=== PATIENT | female | born 1980 | race Caucasian/White ===

== ENCOUNTER 2017-04-02 20:42 | Emergency (ER) | payer OTHER ==
[2017-04-02 20:58] VITALS: BP 148/84
--- NOTE | 2017-04-02 21:15 | EDM.PDOC ---
ED HPI GENERAL MEDICAL PROBLEM - General Chief Complaint: Headache Stated Complaint: DIZZY/MIGRAINE Time Seen by Provider: 04/02/17 21:13 Source of Information: Reports: Patient, RN Notes Reviewed - History of Present Illness INITIAL COMMENTS - FREE TEXT/NARRATIVE: 36-year-old female comes in with headache that started several hours ago. She states she did have mild headache this past morning but then did fairly well throughout the day. States she did have an argument with her "16-year-old son this evening and headache then he came much worse after that. Headache is frontal, pounding there has been some nausea no vomiting. No other unusual symptomatology. Left Headache Pain Score (Numeric/FACES): 8 - Related Data Allergies Allergy/AdvReac Type Severity Reaction Status Date / Time adalimumab [From Humira] Allergy Other Verified 09/20/14 21:14 infliximab [From Remicade] Allergy Other Verified 09/20/14 21:14 prochlorperazine edisylate Allergy Other Verified 09/20/14 21:14 [From Compazine] prochlorperazine maleate Allergy Other Verified 09/20/14 21:14 [From Compazine] bandaids Allergy Rash Uncoded 05/14/14 21:43 Home Meds: Home Meds Desmopressin Acetate 2 spray NS DAILY 05/14/14 [History] Gabapentin [Neurontin] 100 mg PO DAILY 04/02/17 [History] Indomethacin 50 mg PO DAILY PRN 04/02/17 [History] Past Medical History Other HEENT History: 4 eye surgerys Cardiovascular History: Reports: None Respiratory History: Reports: None Gastrointestinal History: Reports: None Genitourinary History: Reports: None 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 Other Musculoskeletal History: arm surgery Neurological History: Reports: Migraines Psychiatric History: Reports: None Hematologic History: Reports: None - Infectious Disease History Infectious Disease History: Reports: None - Past Surgical History Other HEENT Surgeries/Procedures: matt reconstruction 2 years ago GI Surgical History: Reports: Cholecystectomy Female Surgical History: Reports: Hysterectomy Social & Family History - Family History Family Medical History: Noncontributory - Tobacco Use Smoking Status *Q: Current Every Day Smoker Years of Tobacco use: 18 Packs/Tins Daily: 1 - Caffeine Use Caffeine Use: Reports: Coffee, Soda - Alcohol Use Days Per Week of Alcohol Use: 0 - Recreational Drug Use Recreational Drug Use: No ED ROS GENERAL - Review of Systems Review Of Systems: See Below Constitutional: Denies: Fever, Chills, Diaphoresis HEENT: Reports: No Symptoms. Denies: Throat Pain Respiratory: Reports: No Symptoms Cardiovascular: Denies: Chest Pain GI/Abdominal: Denies: Abdominal Pain, Nausea, Vomiting : Reports: No Symptoms Musculoskeletal: Denies: Shoulder Pain, Arm Pain Skin: Reports: No Symptoms Neurological: Reports: Headache. Denies: Numbness, Tingling - Physical Exam Exam: See Below General Appearance: Alert, No Apparent Distress Throat/Mouth: Normal Inspection Head Exam: Atraumatic. No: Facial Swelling Neck: Supple, Full Range of Motion Respiratory/Chest: No Respiratory Distress, Lungs Clear, Normal Breath Sounds Cardiovascular: Regular Rate, Rhythm Neuro Exam (Abbreviated): Alert, Oriented, No Motor/Sensory Deficits Back Exam: No: CVA Tenderness (L), CVA Tenderness (R) Extremities: Normal Inspection. No: Leg Pain Skin Exam: Warm, Dry, Normal Color Course - Vital Signs Last Recorded V/S: Last Vital Signs Temp 98.3 F 04/02/17 20:53 Pulse 83 04/02/17 20:53 Resp 16 04/02/17 20:53 BP 148/84 H 04/02/17 20:53 Pulse Ox 97 04/02/17 20:53 - Orders/Labs/Meds Orders: Active Orders 24 hr Category Date Time Status Peripheral IV Care [RC] . DIRECTED Care 04/02/17 21:29 Active Ketorolac [Toradol] Med 04/02/17 21:30 Active 30 mg IVPUSH ONETIME Sodium Chloride 0.9% [Normal Saline] 1,000 ml Med 04/02/17 21:30 Active IV ONETIME Sodium Chloride 0.9% [Saline Flush] Med 04/02/17 21:26 Active 10 ml FLUSH ASDIRECTED PRN Peripheral IV Insertion Adult [OM.PC] Stat Oth 04/02/17 21:29 Ordered Medication Orders Sodium Chloride (Normal Saline) 1,000 mls @ 999 mls/hr IV ONETIME NATALIO Last Admin: 04/02/17 21:36 Dose: 999 mls/hr Ketorolac Tromethamine (Toradol) 30 mg IVPUSH ONETIME NATALIO Last Admin: 04/02/17 21:40 Dose: 30 mg Sodium Chloride (Saline Flush) 10 ml FLUSH ASDIRECTED PRN PRN Reason: Keep Vein Open Last Admin: 04/02/17 21:42 Dose: 10 ml Meds: Medications Generic Name Dose Route Start Last Admin Trade Name Freq PRN Reason Stop Dose Admin Sodium Chloride 1,000 mls @ 999 mls/hr 04/02/17 21:30 04/02/17 21:36 Normal Saline IV 999 mls/hr ONETIME NATALIO Administration Ketorolac Tromethamine 30 mg 04/02/17 21:30 04/02/17 21:40 Toradol IVPUSH 30 mg ONETIME NATALIO Administration Sodium Chloride 10 ml 04/02/17 21:26 04/02/17 21:42 Saline Flush FLUSH 10 ml ASDIRECTED PRN Administration Keep Vein Open Discontinued Medications Generic Name Dose Route Start Last Admin Trade Name Freq PRN Reason Stop Dose Admin Diphenhydramine HCl 50 mg 04/02/17 21:30 04/02/17 21:39 Benadryl IVPUSH 04/02/17 21:31 50 mg ONETIME ONE Administration Haloperidol Lactate 5 mg 04/02/17 22:22 04/02/17 22:30 Haldol IVPUSH 04/02/17 22:23 5 mg ONETIME ONE Administration Metoclopramide HCl 5 mg 04/02/17 21:30 04/02/17 21:37 Reglan IVPUSH 04/02/17 21:31 5 mg ONETIME ONE Administration Departure - Departure Time of Disposition: 22:41 Disposition: Home, Self-Care 01 Condition: Fair Clinical Impression: Migraine - Discharge Information Referrals: Stevie Hernadez MD [Primary Care Provider] - Forms: ED Department Discharge Additional Instructions: Rest, continue current medications, Follow up at clinic Wednesday if headache has not completely resolved by than, return to ED as needed - My Orders Last 24 Hours: My Active Orders 04/02/17 21:26 Sodium Chloride 0.9% [Saline Flush] 10 ml FLUSH ASDIRECTED PRN 04/02/17 21:29 Peripheral IV Care [RC] . DIRECTED Peripheral IV Insertion Adult [OM.PC] Stat 04/02/17 21:30 Ketorolac [Toradol] 30 mg IVPUSH ONETIME Sodium Chloride 0.9% [Normal Saline] 1,000 ml IV ONETIME - Assessment/Plan Last 24 Hours: My Active Orders 04/02/17 21:26 Sodium Chloride 0.9% [Saline Flush] 10 ml FLUSH ASDIRECTED PRN 04/02/17 21:29 Peripheral IV Care [RC] . DIRECTED Peripheral IV Insertion Adult [OM.PC] Stat 04/02/17 21:30 Ketorolac [Toradol] 30 mg IVPUSH ONETIME Sodium Chloride 0.9% [Normal Saline] 1,000 ml IV ONETIME
[2017-04-02] MEDS ORDERED: Sodium Chloride 0.9% 10 ML Syringe FLUSH PRN (21:26)
[2017-04-02] MEDS ORDERED: Ketorolac 30 MG/ML SDV IVPUSH SCH (21:30)
[2017-04-02] MEDS ORDERED: diphenhydrAMINE 50 MG/ML SDV IVPUSH ONE (21:30)
[2017-04-02] MEDS ORDERED: Sodium Chloride 0.9% 1,000 ML IV SCH (21:30)
[2017-04-02] MEDS ORDERED: Metoclopramide 10 MG/2 ML SDV IVPUSH ONE (21:30)
[2017-04-02] MEDS ORDERED: Haloperidol Lactate 5 MG/ML SDV IVPUSH ONE (22:22)
== END 2017-04-02 22:45 | disposition home or self-care (01) ==
LOC: JD.ED 20:42
DX: G43.909 Migraine, unspecified, not intractable, without status migrainosus (principal); F17.210 Nicotine dependence, cigarettes, uncomplicated; Z88.8 Allergy status to other drugs, medicaments and biological substances; Z79.899 Other long term (current) drug therapy; Z90.49 Acquired absence of other specified parts of digestive tract; Z90.710 Acquired absence of both cervix and uterus
CPT/HCPCS: 96361; 96374; 96375; 99284; J1200; J1630; J1885; J2765; J7040; J7050

== ENCOUNTER 2017-04-03 18:41 | Emergency (ER) | payer OTHER ==
[2017-04-03 18:51] VITALS: BP 150/91
--- NOTE | 2017-04-03 19:14 | EDM.PDOC ---
ED HPI GENERAL MEDICAL PROBLEM - General Chief Complaint: Allergic Reaction Stated Complaint: Allergic reaction Time Seen by Provider: 04/03/17 19:00 Source of Information: Reports: Patient, RN Notes Reviewed History Limitations: Reports: No Limitations - History of Present Illness INITIAL COMMENTS - FREE TEXT/NARRATIVE: 36 year old female presents to the ED with complaints of allergic reaction to Haldol injection she received last evening for migraine headache. She said almost immediately after the injection she started to feel restless. This feeling has progressively worsened since that time. She feels itchy all over and has a dry cough. She denies throat swelling, facial swelling, difficulty swallowing, wheezing, shortness of breath, or stridor. She also reports cramping in her lower extremities. She has several medication allergies. Her headache resolved after her visit last evening. 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: benadryl 50 mg at 0800 - Related Data Allergies Allergy/AdvReac Type Severity Reaction Status Date / Time adalimumab [From Humira] Allergy Other Verified 04/03/17 18:47 infliximab [From Remicade] Allergy Other Verified 04/03/17 18:47 prochlorperazine edisylate Allergy Other Verified 04/03/17 18:47 [From Compazine] prochlorperazine maleate Allergy Other Verified 04/03/17 18:47 [From Compazine] bandaids Allergy Rash Uncoded 04/03/17 18:47 Home Meds: Home Meds Desmopressin Acetate 2 spray NS DAILY 05/14/14 [History] Gabapentin [Neurontin] 100 mg PO DAILY 04/02/17 [History] Indomethacin 50 mg PO DAILY PRN 04/02/17 [History] Past Medical History Other HEENT History: 4 eye surgerys Cardiovascular History: Reports: None Respiratory History: Reports: None Gastrointestinal History: Reports: None Genitourinary History: Reports: None 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 Other Musculoskeletal History: arm surgery Neurological History: Reports: Migraines Psychiatric History: Reports: None Hematologic History: Reports: None - Infectious Disease History Infectious Disease History: Reports: None - Past Surgical History Other HEENT Surgeries/Procedures: matt reconstruction 2 years ago GI Surgical History: Reports: Cholecystectomy Female Surgical History: Reports: Hysterectomy Social & Family History - Family History Family Medical History: Noncontributory - Tobacco Use Smoking Status *Q: Current Every Day Smoker Years of Tobacco use: 18 Packs/Tins Daily: 1 - Caffeine Use Caffeine Use: Reports: Coffee, Soda - Alcohol Use Days Per Week of Alcohol Use: 0 - Recreational Drug Use Recreational Drug Use: No ED ROS ALLERGIC REACTION - Review of Systems Review Of Systems: See Below Constitutional: Denies: Fever HEENT: Reports: No Symptoms. Denies: Throat Swelling Respiratory: Reports: Cough. Denies: Shortness of Breath, Wheezing Cardiovascular: Reports: No Symptoms. Denies: Chest Pain Skin: Reports: Pruritis. Denies: Rash Neurological: Reports: No Symptoms. Denies: Confusion, Dizziness, Headache, Numbness, Tingling, Weakness ED EXAM GENERAL NO PERIP PULSE - Physical Exam Exam: See Below Exam Limited By: No Limitations General Appearance: Alert, WD/WN, No Apparent Distress Throat/Mouth: Normal Inspection, Normal Lips, Normal Oropharynx, Normal Voice, No Airway Compromise. No: Inflammation, Perioral Cyanosis Head: Atraumatic, Normocephalic Neck: Normal Inspection, Supple, Non-Tender Respiratory/Chest: No Respiratory Distress, Lungs Clear, Normal Breath Sounds, No Accessory Muscle Use, Chest Non-Tender. No: Rhonchi, Wheezing, Stridor, Retractions Cardiovascular: Regular Rate, Rhythm, No Murmur Neurological: Alert, Oriented, Normal Cognition Course - Vital Signs Last Recorded V/S: Last Vital Signs Temp 97.9 F 04/03/17 18:47 Pulse 92 04/03/17 18:47 Resp 17 04/03/17 18:47 BP 150/91 H 04/03/17 18:47 Pulse Ox 97 04/03/17 18:47 - Re-Assessments/Exams Free Text/Narrative Re-Assessment/Exam: No signs of anaphylaxis at this time. Recommended treatment with Benadryl and pepcid. Do not recommend prednisone due to the stimulating side effects. Offered to start initial treatment here but patient would prefer to take the Benadry at home and go to bed. Patient educated on return precautions. Discharge instructions as documented. Will add Haldol to her allergy list. Departure - Departure Time of Disposition: 19:12 Disposition: Home, Self-Care 01 Condition: Good Clinical Impression: Allergic reaction caused by a drug Qualifiers: Encounter type: initial encounter Qualified Code(s): T78.40XA - Allergy, unspecified, initial encounter - Discharge Information Instructions: Drug Allergy, [id number] Referrals: Stevie Hernadez MD [Primary Care Provider] - Forms: ED Department Discharge Additional Instructions: Benadryl 50mg every 6 hours for first 24 hours May change to Zyrtec once a day once symptoms have improved Take pepcid 20mg twice a day for 5 days Return to ER with any new or worsening symptoms. Tylenol as needed for pain
== END 2017-04-03 19:20 | disposition home or self-care (01) ==
LOC: JD.ED 18:41
DX: L29.9 Pruritus, unspecified (principal); T43.4X5A Adverse effect of butyrophenone and thiothixene neuroleptics, initial encounter; F17.210 Nicotine dependence, cigarettes, uncomplicated; Z88.8 Allergy status to other drugs, medicaments and biological substances; Z79.899 Other long term (current) drug therapy
CPT/HCPCS: 99282; 99283

== ENCOUNTER 2017-12-17 10:12 | Emergency (ER) | payer OTHER ==
[2017-12-17 10:19] VITALS: BP 137/88
--- NOTE | 2017-12-17 11:08 | EDM.PDOC ---
ED HPI GENERAL MEDICAL PROBLEM - General Chief Complaint: Laceration Stated Complaint: RT ARM LAC Time Seen by Provider: 12/17/17 11:07 Source of Information: Reports: Patient History Limitations: Reports: No Limitations - History of Present Illness INITIAL COMMENTS - FREE TEXT/NARRATIVE: Patient is a 37 y/o female who presents to the E.D. complaining of a 2.2 cm laceration to the right forearm. Patient sustained the laceration this a.m. after cutting it on a crock pot that had broken and was being thrown away. States she was initially concerned because the bleeding would not stop thus prompted evaluation in ED. Upon of admission to the ED she has minimal discomfort. Bleeding is controlled. Tetanus status up-to-date. No other complaints at this time. - Related Data Allergies Allergy/AdvReac Type Severity Reaction Status Date / Time adalimumab [From Humira] Allergy Other Verified 12/17/17 10:19 haloperidol [From Haldol] Allergy Itching Verified 12/17/17 10:19 infliximab [From Remicade] Allergy Other Verified 12/17/17 10:19 prochlorperazine edisylate Allergy Other Verified 12/17/17 10:19 [From Compazine] prochlorperazine maleate Allergy Other Verified 12/17/17 10:19 [From Compazine] bandaids Allergy Rash Uncoded 12/17/17 10:19 Home Meds: Home Meds Desmopressin Acetate 2 spray NS DAILY 05/14/14 [History] Gabapentin [Neurontin] 100 mg PO DAILY 04/02/17 [History] Indomethacin 50 mg PO DAILY PRN 04/02/17 [History] Liraglutide [Victoza] 1.8 ml INJECT DAILY 12/17/17 [History] metFORMIN [Glucophage XR] 500 mg PO DAILY 12/17/17 [History] Past Medical History Other HEENT History: 4 eye surgerys Cardiovascular History: Reports: None Respiratory History: Reports: None Gastrointestinal History: Reports: None Genitourinary History: Reports: None 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 Other Musculoskeletal History: arm surgery Neurological History: Reports: Migraines Psychiatric History: Reports: None Hematologic History: Reports: None - Infectious Disease History Infectious Disease History: Reports: None - Past Surgical History Other HEENT Surgeries/Procedures: matt reconstruction 2 years ago GI Surgical History: Reports: Cholecystectomy Female Surgical History: Reports: Hysterectomy Social & Family History - Family History Family Medical History: Noncontributory - Tobacco Use Smoking Status *Q: Current Every Day Smoker Years of Tobacco use: 15 Packs/Tins Daily: 1 - Caffeine Use Caffeine Use: Reports: Coffee - Alcohol Use Days Per Week of Alcohol Use: 0 - Recreational Drug Use Recreational Drug Use: No ED ROS GENERAL - Review of Systems Review Of Systems: ROS reveals no pertinent complaints other than HPI. ED EXAM, SKIN/RASH Exam: See Below Exam Limited By: No Limitations General Appearance: Alert, WD/WN, No Apparent Distress Ears: Hearing Grossly Normal Nose: Normal Inspection Throat/Mouth: Normal Voice, No Airway Compromise Neck: Normal Inspection, Supple Respiratory/Chest: No Respiratory Distress, No Accessory Muscle Use Cardiovascular: Normal Peripheral Pulses, Regular Rate, Rhythm Peripheral Pulses: 4+: Radial (R) Extremities: Other (2.2 cm laceration to the right forearm with bleeding control. No signs of infection. No foreign debris noted.) Neurological: Alert, Oriented, CN II-XII Intact, Normal Cognition, No Motor/ Sensory Deficits Psychiatric: Normal Affect, Normal Mood Skin: Warm, Dry ED SKIN PROCEDURES - Laceration/Wound Repair Right Arm Lac/Wound length In cm: 2.2 Appearance: Superficial, Clean Distal NVT: Neuro & Vascular Intact Exploration/Debridement/Repair: Wound Explored, In a Bloodless Field, Explored to Base, No Foreign Material Found Closed with: Steri-Strips Drain Placement: No Sterile Dressing Applied: Nurse Tetanus Status Addressed: Yes Complications: No Course - Vital Signs Last Recorded V/S: Last Vital Signs Temp 97.6 F 12/17/17 10:15 Pulse 95 12/17/17 10:15 Resp 18 12/17/17 10:15 BP 137/88 12/17/17 10:15 Pulse Ox 98 12/17/17 10:15 - Re-Assessments/Exams Free Text/Narrative Re-Assessment/Exam: Patient has been in the E.D. for 55minutes prior to being evaluated by me. Laceration closed with Steri-Strips. Discharge instructions as documented. Departure - Departure Time of Disposition: 11:19 Disposition: Home, Self-Care 01 Condition: Good Clinical Impression: Arm laceration Qualifiers: Encounter type: initial encounter Laterality: right Qualified Code(s): S41.111A - Laceration without foreign body of right upper arm, initial encounter - Discharge Information Instructions: Laceration Care, Adult, [id number], Stitches, [place], or Adhesive Wound Closure, [id number] Referrals: Quin Short [Primary Care Provider] - Forms: ED Department Discharge
== END 2017-12-17 11:25 | disposition home or self-care (01) ==
LOC: JD.ED 10:12
DX: S41.111A Laceration without foreign body of right upper arm, initial encounter (principal); F17.210 Nicotine dependence, cigarettes, uncomplicated; W45.8XXA Other foreign body or object entering through skin, initial encounter; Z88.8 Allergy status to other drugs, medicaments and biological substances; Z90.710 Acquired absence of both cervix and uterus; Z79.899 Other long term (current) drug therapy
CPT/HCPCS: 12001; 99283; 99283-25

== ENCOUNTER 2018-11-29 22:28 | Emergency (ER) | payer OTHER ==
[2018-11-29 22:48] VITALS: BP 136/80
[2018-11-29] MEDS ORDERED: Ondansetron 4 MG/2 ML SDV IVPUSH ONE (22:53)
[2018-11-29] MEDS ORDERED: Sodium Chloride 0.9% 1,000 ML IV STA (22:53)
[2018-11-29] MEDS ORDERED: Sodium Chloride 0.9% 10 ML Syringe FLUSH PRN (22:53)
[2018-11-29] MEDS ORDERED: HYDROmorphone 1 MG/ML Syringe IVPUSH ONE (22:54)
[2018-11-30] MEDS ORDERED: Sodium Chloride 0.9% 1,000 ML IV ONE (00:16)
--- NOTE | 2018-11-30 00:54 | EDM.PDOC ---
ED HPI GENERAL MEDICAL PROBLEM - General Chief Complaint: Abdominal Pain Stated Complaint: vomiting ABDOMINAL PAIN Time Seen by Provider: 11/29/18 22:41 Source of Information: Reports: Patient, Family History Limitations: Reports: No Limitations - History of Present Illness INITIAL COMMENTS - FREE TEXT/NARRATIVE: The patient presents with abdominal pain, nausea, vomiting and diarrhea. This all started about 4pm today. She has no fever or chills. She has no dysuria. She is still urinating. She has a history of diabetes insipidus. She still has her appendix and gallbladder. She has no chest pain, cough or shortness of breath. She as other family members who are sick. She does not think she ate any bad food. Onset: Gradual Duration: Hour(s): Location: Reports: Abdomen Quality: Reports: Sharp Severity: Moderate Improves with: Reports: None Worsens with: Reports: None Associated Symptoms: Reports: Nausea/Vomiting. Denies: Chest Pain, Cough, Fever /Chills, Headaches, Shortness of Breath Other Treatments NURSES SUPERINTENDENT: zofran at 9pm Right Lower Abdomen Pain Score (Numeric/FACES): 5 - Related Data Allergies Allergy/AdvReac Type Severity Reaction Status Date / Time adalimumab [From Humira] Allergy Other Verified 11/29/18 22:42 haloperidol [From Haldol] Allergy Itching Verified 11/29/18 22:42 infliximab [From Remicade] Allergy Other Verified 11/29/18 22:42 prochlorperazine edisylate Allergy Other Verified 11/29/18 22:42 [From Compazine] prochlorperazine maleate Allergy Other Verified 11/29/18 22:42 [From Compazine] bandaids Allergy Rash Uncoded 04/05/18 00:50 Home Meds: Home Meds Desmopressin Acetate 2 spray NS DAILY 05/14/14 [History] Gabapentin [Neurontin] 100 mg PO BEDTIME 04/02/17 [History] Indomethacin 50 mg PO DAILY PRN 04/02/17 [History] metFORMIN [Glucophage XR] 500 mg PO BEDTIME 12/17/17 [History] traMADol [Ultram] 50 mg PO Q6H PRN 03/28/18 [History] Dicyclomine [Bentyl] 20 mg PO QID #20 tab 06/13/18 [Rx] FLUoxetine [PROzac] 10 mg PO BEDTIME 06/13/18 [History] Liraglutide [Victoza] 1.8 mg SQ BEDTIME 06/13/18 [History] Ondansetron [Zofran ODT] 4 mg PO Q8H PRN #15 tab.dis 06/13/18 [Rx] Pantoprazole [ProTONIX] 40 mg PO BEDTIME 06/13/18 [History] Past Medical History Other HEENT History: 4 eye surgerys Cardiovascular History: Reports: None Respiratory History: Reports: None Gastrointestinal History: Reports: None Genitourinary History: Reports: None 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: Reports: Endometriosis Other Musculoskeletal History: arm surgery Neurological History: Reports: Migraines Psychiatric History: Reports: None Endocrine/Metabolic History: Reports: Other (See Below) Other Endocrine/Metabolic History: diabetes insipidious Hematologic History: Reports: None - Infectious Disease History Infectious Disease History: Reports: None - Past Surgical History Other HEENT Surgeries/Procedures: matt reconstruction 2 years ago GI Surgical History: Reports: Cholecystectomy Female Surgical History: Reports: Hysterectomy Social & Family History - Family History Family Medical History: Noncontributory - Tobacco Use Smoking Status *Q: Current Every Day Smoker Years of Tobacco use: 20 Packs/Tins Daily: 0.2 - Caffeine Use Caffeine Use: Reports: Coffee, Soda - Living Situation & Occupation Living situation: Reports: Occupation: Unemployed ED ROS GENERAL - Review of Systems Review Of Systems: See Below Constitutional: Reports: No Symptoms HEENT: Reports: No Symptoms Respiratory: Reports: No Symptoms Cardiovascular: Reports: No Symptoms Endocrine: Reports: No Symptoms GI/Abdominal: Reports: Abdominal Pain, Diarrhea, Nausea, Vomiting : Reports: No Symptoms Musculoskeletal: Reports: No Symptoms ED EXAM, GI/ABD - Physical Exam Exam: See Below Exam Limited By: No Limitations General Appearance: Alert, No Apparent Distress Ears: Normal External Exam Nose: Normal Inspection Head: Atraumatic, Normocephalic Neck: Normal Inspection Respiratory/Chest: No Respiratory Distress, Lungs Clear, Normal Breath Sounds Cardiovascular: Regular Rate, Rhythm, No Edema, No Murmur GI/Abdominal Exam: Soft, No Organomegaly, No Mass, Tender (Mild to moderate tenderness to the right lower abdomen) Course - Vital Signs Last Recorded V/S: Last Vital Signs Temp 98.1 F 11/29/18 22:44 Pulse 122 H 11/29/18 22:44 Resp 16 11/29/18 22:44 BP 136/80 11/29/18 22:44 Pulse Ox 100 11/29/18 22:44 - Orders/Labs/Meds Orders: Active Orders 24 hr Category Date Time Status Peripheral IV Care [RC] . DIRECTED Care 11/29/18 22:53 Active Sodium Chloride 0.9% [Normal Saline] 1,000 ml Med 11/30/18 00:16 Active IV ONETIME Sodium Chloride 0.9% [Saline Flush] Med 11/29/18 22:53 Active 10 ml FLUSH ASDIRECTED PRN ED Antiemetic Medication Reflex [OM.PC] Stat Oth 11/29/18 22:53 Ordered Peripheral IV Insertion Adult [OM.PC] Stat Oth 11/29/18 22:53 Ordered Medication Orders Sodium Chloride (Normal Saline) 1,000 mls @ 1,000 mls/hr IV ONETIME ONE Stop: 11/30/18 01:15 Last Admin: 11/30/18 00:23 Dose: 1,000 mls/hr Sodium Chloride (Saline Flush) 10 ml FLUSH ASDIRECTED PRN PRN Reason: Keep Vein Open Last Admin: 11/29/18 23:08 Dose: 10 ml Labs: Laboratory Tests 11/29/18 11/29/18 11/29/18 Range/Units 23:11 23:11 23:11 WBC 11.13 H (3.98-10.04) K/mm3 RBC 5.27 H (3.98-5.22) M/mm3 Hgb 14.6 (11.2-15.7) gm/L Hct 43.5 (34.1-44.9) % MCV 82.5 (79.4-94.8) fl MCH 27.7 (25.6-32.2) pg MCHC 33.6 (32.2-35.5) g/dl RDW Std Deviation 40.7 (36.4-46.3) fL Plt Count 204 (182-369) K/mm3 MPV 10.6 (9.4-12.3) fl Neut % (Auto) 89.5 H (34.0-71.1) % Lymph % (Auto) 6.2 L (19.3-51.7) % [place] % (Auto) 3.5 L (4.7-12.5) % Eos % (Auto) 0.3 L (0.7-5.8) Baso % (Auto) 0.2 (0.1-1.2) % Neut # (Auto) 9.97 H (1.56-6.13) K/mm3 Lymph # (Auto) 0.69 L (1.18-3.74) K/mm3 [place] # (Auto) 0.39 H (0.24-0.36) K/mm3 Eos # (Auto) 0.03 L (0.04-0.36) K/mm3 Baso # (Auto) 0.02 (0.01-0.08) K/mm3 Manual Slide Review Normal smear Sodium 136 (136-145) mEq/L Potassium 3.8 (3.5-5.1) mEq/L Chloride 103 (98-107) mEq/L Carbon Dioxide 21 (21-32) mEq/L Anion Gap 15.8 H (5-15) BUN 21 H (7-18) mg/dL Creatinine 1.0 (0.55-1.02) mg/dL Est Cr Clr Drug Dosing 73.45 mL/min Estimated GFR (MDRD) > 60 (>60) mL/min BUN/Creatinine Ratio 21.0 H (14-18) Glucose 227 H (74-106) mg/dL Calcium 8.4 L (8.5-10.1) mg/dL Total Bilirubin 0.3 (0.2-1.0) mg/dL AST 12 L (15-37) U/L ALT 25 (14-59) U/L Alkaline Phosphatase 102 (46-116) U/L Total Protein 7.0 (6.4-8.2) g/dl Albumin 3.3 L (3.4-5.0) g/dl Globulin 3.7 gm/dL Albumin/Globulin Ratio 0.9 L (1-2) Lipase 204 (73-393) U/L HCG, Qual Negative (NEGATIVE) Urine Color (Yellow) Urine Appearance (Clear) Urine pH (5.0-8.0) Ur Specific [place] (1.005-1.030) Urine Protein (Negative) Urine Glucose (UA) (Negative) Urine Ketones (Negative) Urine Occult Blood (Negative) Urine Nitrite (Negative) Urine Bilirubin (Negative) Urine Urobilinogen (0.2-1.0) Ur Leukocyte Esterase (Negative) Urine RBC (0-5) /hpf Urine WBC (0-5) /hpf Ur Epithelial Cells Ur Squamous Epith Cells (0-5) /hpf Urine Bacteria (FEW) /hpf Urine Mucus (FEW) /hpf 11/30/18 Range/Units 00:08 WBC (3.98-10.04) K/mm3 RBC (3.98-5.22) M/mm3 Hgb (11.2-15.7) gm/L Hct (34.1-44.9) % MCV (79.4-94.8) fl MCH (25.6-32.2) pg MCHC (32.2-35.5) g/dl RDW Std Deviation (36.4-46.3) fL Plt Count (182-369) K/mm3 MPV (9.4-12.3) fl Neut % (Auto) (34.0-71.1) % Lymph % (Auto) (19.3-51.7) % [place] % (Auto) (4.7-12.5) % Eos % (Auto) (0.7-5.8) Baso % (Auto) (0.1-1.2) % Neut # (Auto) (1.56-6.13) K/mm3 Lymph # (Auto) (1.18-3.74) K/mm3 [place] # (Auto) (0.24-0.36) K/mm3 Eos # (Auto) (0.04-0.36) K/mm3 Baso # (Auto) (0.01-0.08) K/mm3 Manual Slide Review Sodium (136-145) mEq/L Potassium (3.5-5.1) mEq/L Chloride (98-107) mEq/L Carbon Dioxide (21-32) mEq/L Anion Gap (5-15) BUN (7-18) mg/dL Creatinine (0.55-1.02) mg/dL Est Cr Clr Drug Dosing mL/min Estimated GFR (MDRD) (>60) mL/min BUN/Creatinine Ratio (14-18) Glucose (74-106) mg/dL Calcium (8.5-10.1) mg/dL Total Bilirubin (0.2-1.0) mg/dL AST (15-37) U/L ALT (14-59) U/L Alkaline Phosphatase (46-116) U/L Total Protein (6.4-8.2) g/dl Albumin (3.4-5.0) g/dl Globulin gm/dL Albumin/Globulin Ratio (1-2) Lipase (73-393) U/L HCG, Qual (NEGATIVE) Urine Color Yellow (Yellow) Urine Appearance Clear (Clear) Urine pH 6.0 (5.0-8.0) Ur Specific [place] 1.020 (1.005-1.030) Urine Protein Negative (Negative) Urine Glucose (UA) 2+ H (Negative) Urine Ketones Negative (Negative) Urine Occult Blood Negative (Negative) Urine Nitrite Negative (Negative) Urine Bilirubin Negative (Negative) Urine Urobilinogen 0.2 (0.2-1.0) Ur Leukocyte Esterase Negative (Negative) Urine RBC 0-5 (0-5) /hpf Urine WBC Not seen (0-5) /hpf Ur Epithelial Cells Not Reportable Ur Squamous Epith Cells 0-5 (0-5) /hpf Urine Bacteria Rare (FEW) /hpf Urine Mucus Not seen (FEW) /hpf Meds: Medications Generic Name Dose Route Start Last Admin Trade Name Freq PRN Reason Stop Dose Admin Sodium Chloride 1,000 mls @ 1,000 mls/hr 11/30/18 00:16 11/30/18 00:23 Normal Saline IV 11/30/18 01:15 1,000 mls/hr ONETIME ONE Administration Sodium Chloride 10 ml 11/29/18 22:53 11/29/18 23:08 Saline Flush FLUSH 10 ml ASDIRECTED PRN Administration Keep Vein Open Discontinued Medications Generic Name Dose Route Start Last Admin Trade Name Freq PRN Reason Stop Dose Admin Hydromorphone HCl 1 mg 11/29/18 22:54 11/29/18 23:08 Dilaudid IVPUSH 11/29/18 22:55 1 mg ONETIME ONE Administration Sodium Chloride 1,000 mls @ 1,000 mls/hr 11/29/18 22:53 11/29/18 23:07 Normal Saline IV 11/29/18 23:52 1,000 mls/hr .BOLUS STA Administration Ondansetron HCl 4 mg 11/29/18 22:53 11/29/18 23:07 Zofran IVPUSH 11/29/18 22:54 4 mg ONETIME ONE Administration - Re-Assessments/Exams Free Text/Narrative Re-Assessment/Exam: 11/30/18 00:52 I ordered an IV NS 1L bolus, zofran 4mg IV, dilaudid 1mg IV, labs and UA. Her WBC was slightly elevated at 11.13. Her anion gap was elevated at 15.8. Her BUN was elevated at 21. Her glucose was elevated at 227. Her lipase is normal. Her HCG is negative. Her UA shows no UTI. I ordered another liter of fluids. 11/30/18 00:59 She feels better but she still has a little pain. I will give her a dose of dilaudid and discharge her home. Departure - Departure Time of Disposition: 01:00 Disposition: Home, Self-Care 01 Condition: Good Clinical Impression: Gastroenteritis Abdominal pain Qualifiers: Abdominal location: generalized Qualified Code(s): R10.84 - Generalized abdominal pain - Discharge Information *PRESCRIPTION DRUG MONITORING PROGRAM REVIEWED*: Not Applicable *COPY OF PRESCRIPTION DRUG MONITORING REPORT IN PATIENT RENA: Not Applicable Referrals: Ana Luisa Gale MD [Primary Care Provider] - 1 Week Forms: ED Department Discharge Additional Instructions: Drink plenty of fluids. Advance your diet as tolerated today. Start with clear liquids and then crackers and advance from there. Please return if you are worse such as more pain or if you cannot keep anything down. Take the zofran every 6 hours as needed. - My Orders Last 24 Hours: My Active Orders 11/29/18 22:53 Peripheral IV Care [RC] . DIRECTED Sodium Chloride 0.9% [Saline Flush] 10 ml FLUSH ASDIRECTED PRN ED Antiemetic Medication Reflex [OM.PC] Stat Peripheral IV Insertion Adult [OM.PC] Stat 11/30/18 00:16 Sodium Chloride 0.9% [Normal Saline] 1,000 ml IV ONETIME - Assessment/Plan Last 24 Hours: My Active Orders 11/29/18 22:53 Peripheral IV Care [RC] . DIRECTED Sodium Chloride 0.9% [Saline Flush] 10 ml FLUSH ASDIRECTED PRN ED Antiemetic Medication Reflex [OM.PC] Stat Peripheral IV Insertion Adult [OM.PC] Stat 11/30/18 00:16 Sodium Chloride 0.9% [Normal Saline] 1,000 ml IV ONETIME
[2018-11-30] MEDS ORDERED: HYDROmorphone 1 MG/ML Syringe IVPUSH ONE (01:01)
== END 2018-11-30 01:27 | disposition home or self-care (01) ==
LOC: JD.ED 22:28
DX: K52.9 Noninfective gastroenteritis and colitis, unspecified (principal); F17.210 Nicotine dependence, cigarettes, uncomplicated; Z79.899 Other long term (current) drug therapy; Z88.8 Allergy status to other drugs, medicaments and biological substances
CPT/HCPCS: 36415; 80053; 81001; 83690; 84703; 85025; 96361; 96374; 96375; 99283; J1170; J2405; J7040; 99284

== ENCOUNTER 2019-04-26 20:51 | Emergency (ER) | payer OTHER ==
[2019-04-26 21:00] VITALS: BP 131/80
--- NOTE | 2019-04-26 21:27 | EDM.PDOC ---
ED HPI GENERAL MEDICAL PROBLEM - General Chief Complaint: Lower Extremity Injury/Pain Stated Complaint: FELL ON RIGHT HIP INJURING IT Time Seen by Provider: 04/26/19 21:10 - History of Present Illness INITIAL COMMENTS - FREE TEXT/NARRATIVE: 38-year-old female injured her right hip yesterday. Patient was walking and tripped over her husky and landed on her She has pretty firm concrete decking. Since that time she's developed quite a bit of right sided Botox tenderness. She can get up and walk on it but it is sore she taken indomethacin last night and she's been using tramadol. She does not have a lot of pain radiating down her leg it is mostly sore poorly where she landed and pain is sneaking upper back.. She's not any breathing difficulty shortness of breath no nausea vomiting constipation or diarrhea no other complaints. She has had no loss of bowel or bladder control Right Hip Pain Score (Numeric/FACES): 8 - Related Data Allergies Allergy/AdvReac Type Severity Reaction Status Date / Time adalimumab [From Humira] Allergy Other Verified 04/26/19 21:01 haloperidol [From Haldol] Allergy Itching Verified 04/26/19 21:01 infliximab [From Remicade] Allergy Other Verified 04/26/19 21:01 prochlorperazine edisylate Allergy Other Verified 04/26/19 21:01 [From Compazine] prochlorperazine maleate Allergy Other Verified 04/26/19 21:01 [From Compazine] bandaids Allergy Rash Uncoded 04/26/19 21:01 Home Meds: Home Meds Desmopressin Acetate 2 spray NS DAILY 05/14/14 [History] Gabapentin [Neurontin] 100 mg PO TID 04/02/17 [History] Indomethacin 50 mg PO DAILY PRN 04/02/17 [History] metFORMIN [Glucophage XR] 500 mg PO ACDINNER 12/17/17 [History] traMADol [Ultram] 50 mg PO Q6H PRN 03/28/18 [History] FLUoxetine [PROzac] 20 mg PO BEDTIME 06/13/18 [History] Pantoprazole [ProTONIX] 40 mg PO BEDTIME 06/13/18 [History] ALPRAZolam [Xanax] 0.25 mg PO DAILY PRN 03/15/19 [History] Pravastatin [Pravachol] 20 mg PO DAILY 03/15/19 [History] Desmopressin [Desmopressin 0.1% Nasal [place]] 2 spray MELVIN DAILY 04/16/19 [History ] Ergocalciferol (Vitamin D2) [Vitamin D2] 2,000 units PO DAILY 04/16/19 [History] FLUoxetine HCl [Fluoxetine HCl] 40 mg PO DAILY 04/16/19 [History] Semaglutide [Ozempic] 0.5 mg SQ ASDIRECTED 04/16/19 [History] Orphenadrine [Norflex] 100 mg PO BID PRN #20 tab 04/26/19 [Rx] Past Medical History HEENT History: Reports: Impaired Vision, Other (See Below) Other HEENT History: 4 eye surgerys Cardiovascular History: Reports: High Cholesterol Respiratory History: Reports: None Gastrointestinal History: Reports: Diverticulosis Genitourinary History: Reports: Urinary Incontinence 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 Hematologic History: Reports: None Immunologic History: Reports: None Oncologic (Cancer) History: Reports: None Other Dermatologic History: "Skin peels on my hands." - Infectious Disease History Infectious Disease History: Reports: Chicken Pox - Past Surgical History Head Surgeries/Procedures: Reports: None HEENT Surgical History: Reports: Eye Surgery, Naso-Sinus Surgery, Oral Surgery, Tonsillectomy GI Surgical History: Reports: Cholecystectomy Female Surgical History: Reports: Hysterectomy, Other (See Below) Musculoskeletal Surgical History: Reports: ORIF Social & Family History - Family History Family Medical History: Noncontributory - Tobacco Use Smoking Status *Q: Current Every Day Smoker Years of Tobacco use: 20 Packs/Tins Daily: 1 - Caffeine Use Caffeine Use: Reports: Coffee, Soda - Recreational Drug Use Recreational Drug Use: No - Living Situation & Occupation Living situation: Reports: , with Spouse, with Family (3 kids) 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) Review of Systems - Review of Systems Review Of Systems: See Below Respiratory: Reports: No Symptoms Cardiovascular: Reports: No Symptoms GI/Abdominal: Reports: No Symptoms Genitourinary: Reports: No Symptoms Musculoskeletal: Reports: No Symptoms Skin: Reports: No Symptoms Neurological: Reports: No Symptoms Psychiatric: Reports: No Symptoms ED EXAM, GENERAL - Physical Exam Exam: See Below Exam Limited By: No Limitations General Appearance: Alert, No Apparent Distress Respiratory/Chest: No Respiratory Distress, Lungs Clear, Normal Breath Sounds Cardiovascular: Normal Peripheral Pulses, Regular Rate, Rhythm, No Edema GI/Abdominal: Normal Bowel Sounds, Soft, Non-Tender Back Exam: Normal Inspection, Paraspinal Tenderness (She has some right-sided paraspinous muscle tenderness and spasm). No: Vertebral Tenderness Neurological: Other (Motion of the right hip is tender with forced flexion and internal rotation) Psychiatric: Normal Affect, Normal Mood Skin Exam: Warm, Dry, Intact Lymphatic: No Adenopathy Course - Vital Signs Last Recorded V/S: Last Vital Signs Temp Pulse 79 04/26/19 20:58 Resp 16 04/26/19 20:58 BP 131/80 04/26/19 20:58 Pulse Ox 99 04/26/19 20:58 - Orders/Labs/Meds Meds: Medications Discontinued Medications Generic Name Dose Route Start Last Admin Trade Name Freq PRN Reason Stop Dose Admin Ketorolac Tromethamine 30 mg 04/26/19 21:34 04/26/19 21:48 Toradol IM 04/26/19 21:35 30 mg ONETIME ONE Administration Orphenadrine Citrate 100 mg 04/27/19 21:34 Norflex PO 04/27/19 21:35 ONETIME ONE Orphenadrine Citrate 100 mg 04/26/19 21:34 04/26/19 21:48 Norflex PO 04/26/19 21:35 100 mg ONETIME ONE Administration Orphenadrine Citrate Confirm 04/26/19 21:40 04/26/19 21:49 Norflex Administered 04/26/19 21:41 Not Given Dose 100 mg .ROUTE .STK-MED ONE - Re-Assessments/Exams Free Text/Narrative Re-Assessment/Exam: 04/26/19 21:45 Try Toradol 30 mg IM and Norflex 100 mg by mouth 04/26/19 22:32 Patient is resting comfortably she is awake alert and oriented and wants to go home and get some rest Departure - Departure Time of Disposition: 22:33 Disposition: Home, Self-Care 01 Clinical Impression: Muscle strain of gluteal region - Discharge Information Prescriptions: Orphenadrine [Norflex] 100 mg PO BID PRN #20 tab PRN Reason: Spasms Referrals: Ana Luisa Gale MD [Primary Care Provider] - Forms: ED Department Discharge Additional Instructions: Turn to the emergency room with any questions problems worsening symptoms avoid the tramadol. Use the Norflex and the indomethacin. Follow-up with your regular physician early next week for recheck
[2019-04-26] MEDS ORDERED: Orphenadrine 100 MG Tab.ER PO ONE (21:34)
[2019-04-26] MEDS ORDERED: Ketorolac 30 MG/ML SDV IM ONE (21:34)
[2019-04-26] MEDS ORDERED: Orphenadrine 100 MG Tab.ER ONE (21:40)
[2019-04-27] MEDS ORDERED: Orphenadrine 100 MG Tab.ER PO ONE (21:34)
== END 2019-04-26 22:56 | disposition home or self-care (01) ==
LOC: JD.ED 20:51
DX: S39.012A Strain of muscle, fascia and tendon of lower back, initial encounter (principal); F17.210 Nicotine dependence, cigarettes, uncomplicated; E78.00 Pure hypercholesterolemia, unspecified; F41.9 Anxiety disorder, unspecified; F32.9 Major depressive disorder, single episode, unspecified; E11.9 Type 2 diabetes mellitus without complications; Z79.84 Long term (current) use of oral hypoglycemic drugs; Z88.8 Allergy status to other drugs, medicaments and biological substances; Z91.09 Other allergy status, other than to drugs and biological substances; W01.198A Fall on same level from slipping, tripping and stumbling with subsequent striking against other object, initial encounter
CPT/HCPCS: 96372; 99282; A9270; J1885

== ENCOUNTER 2019-06-19 01:09 | Emergency (ER) | payer OTHER ==
--- NOTE | 2019-06-19 02:02 | EDM.PDOC ---
ED HPI GENERAL MEDICAL PROBLEM - General Chief Complaint: Cardiovascular Problem Stated Complaint: dizzy light headed Time Seen by Provider: 06/19/19 01:18 Source of Information: Reports: Patient, Family () History Limitations: Reports: No Limitations - History of Present Illness INITIAL COMMENTS - FREE TEXT/NARRATIVE: Mrs. 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 She states that she developed lightheadedness, even when supine, along with slight dyspnea, some chest heaviness, nausea and vomiting, chills without fever, the sensation that her limbs are heavy, and the sensation that her heart is beating harder, this morning. No recent wheezing. She reports having a chronic smoker's cough that is unchanged. She reports chronic watery diarrhea that is unchanged. No recent urinary symptoms. She reports chronic back pain that is unchanged, but no new flank pain. No prior similar symptoms. The patient states that she has not taken any [id number] home remedies to treat her symptoms. The patient checks her blood sugar twice a day, with a usual range of 130 to 180. This evening's Accu-Cheks have been 91, 121, and, just prior to coming to the ED, 171. Here in the ED, the patient is found to be hemodynamically stable and afebrile. The patient's PCP is Dr. Ana Luisa Gale. Her Tag Press Operator is Dr. Robin Sousa at [facility]. - Related Data Allergies Allergy/AdvReac Type Severity Reaction Status Date / Time adalimumab [From Humira] Allergy Other Verified 06/19/19 01:19 haloperidol [From Haldol] Allergy Itching Verified 06/19/19 01:19 infliximab [From Remicade] Allergy Other Verified 06/19/19 01:19 prochlorperazine edisylate Allergy Other Verified 06/19/19 01:19 [From Compazine] prochlorperazine maleate Allergy Other Verified 06/19/19 01:19 [From Compazine] bandaids Allergy Rash Uncoded 04/26/19 21:01 Home Meds: Home Meds Gabapentin [Neurontin] 100 mg PO TID 04/02/17 [History] Indomethacin 50 mg PO DAILY PRN 04/02/17 [History] metFORMIN [Glucophage XR] 500 mg PO ACDINNER 12/17/17 [History] traMADol [Ultram] 50 mg PO Q6H PRN 03/28/18 [History] Pantoprazole [ProTONIX] 40 mg PO BEDTIME 06/13/18 [History] Pravastatin [Pravachol] 20 mg PO DAILY 03/15/19 [History] Desmopressin [Desmopressin 0.1% Nasal [place]] 2 spray MELVIN DAILY 04/16/19 [History ] Ergocalciferol (Vitamin D2) [Vitamin D2] 2,000 units PO DAILY 04/16/19 [History] FLUoxetine HCl [Fluoxetine HCl] 40 mg PO DAILY 04/16/19 [History] Semaglutide [Ozempic] 0.5 mg SQ ASDIRECTED 04/16/19 [History] Indomethacin 100 mg PO BEDTIME 06/19/19 [History] Past Medical History HEENT History: Reports: Impaired Vision Cardiovascular History: Reports: High Cholesterol Gastrointestinal History: Reports: Diverticulosis (hx diverticulitis), GERD Genitourinary History: Reports: Urinary Incontinence (stress incontinence) 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: Endometriosis (laparoscopy-confirmed) Musculoskeletal History: Reports: Fracture (left forearm) Neurological History: Reports: Brain Injury (TBI 1997), Migraines, Neuropathy, Diabetic Psychiatric History: Reports: Anxiety, Depression, Other (See Below) ( Fibromyalgia) Endocrine/Metabolic History: Reports: Diabetes, Type II, Obesity/BMI 30+, Other (See Below) (diabetes insipidus following TBI 1997) - Infectious Disease History Infectious Disease History: Reports: Chicken Pox - Past Surgical History HEENT Surgical History: Reports: Eye Surgery, Naso-Sinus Surgery (Rhinoplasty), Oral Surgery (wisdom teeth extraction), Tonsillectomy GI Surgical History: Reports: Cholecystectomy (around 2008) Female Surgical History: Reports: Hysterectomy (partial), Other (See Below) ( Exploratory laparoscopy for endometriosis) Musculoskeletal Surgical History: Reports: ORIF (left forearm) Social & Family History - Family History Family Medical History: Noncontributory - Tobacco Use Smoking Status *Q: Current Every Day Smoker Years of Tobacco use: 21 Packs/Tins Daily: 0.5 Packs/Tins Daily Comment: Down from 1.5 ppd - Caffeine Use Caffeine Use: Reports: None - Alcohol Use Alcohol Use History: Yes Alcohol Use Frequency: Socially (occasionally to excess) - Recreational Drug Use Recreational Drug Use: No - Living Situation & Occupation Living situation: Reports: , with Spouse, with Family (3 kids) 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 ED EXAM, GENERAL - Physical Exam Exam: See Below Exam Limited By: No Limitations General Appearance: Alert, WD/WN, No Apparent Distress Eye Exam: Bilateral Eye: EOMI, Normal Inspection Ears: Normal External Exam, Hearing Grossly Normal Nose: Normal Inspection Throat/Mouth: Normal Inspection, Normal Lips, Normal Voice, No Airway Compromise Head: Atraumatic, Normocephalic Neck: Normal Inspection, Full Range of Motion Respiratory/Chest: No Respiratory Distress, Lungs Clear, Normal Breath Sounds, No Accessory Muscle Use Cardiovascular: Normal Peripheral Pulses, Regular Rate, Rhythm, No Edema, No Gallop, No JVD, No Murmur, No Rub Peripheral Pulses: 4+: Radial (L), Radial (R) GI/Abdominal: Normal Bowel Sounds, Soft, Non-Tender, No Organomegaly, No Distention, No Abnormal Bruit, No Mass (Female) Exam: Deferred Rectal (Female) Exam: Deferred Back Exam: Normal Inspection, Full Range of Motion, NT Extremities: Normal Inspection, Normal Range of Motion, No Pedal Edema, Normal Capillary Refill Neurological: Alert, Oriented, Normal Cognition, No Motor/Sensory Deficits Psychiatric: Normal Affect Skin Exam: Warm, Dry, Intact, Normal Color, No Rash Course - Vital Signs Last Recorded V/S: Last Vital Signs Temp 36.3 C 06/19/19 01:16 Pulse 98 06/19/19 01:16 Resp 17 06/19/19 01:16 BP 128/88 06/19/19 01:16 Pulse Ox 97 06/19/19 01:16 Orthostatic Blood Pressure [ 132/82 Standing] Orthostatic Blood Pressure [ 131/79 Sitting] Orthostatic Blood Pressure [ 127/76 Supine] - Orders/Labs/Meds Orders: Active Orders 24 hr Category Date Time Status EKG Documentation Completion [RC] STAT Care 06/19/19 01:47 Active Orthostatic Vital Signs [RC] STAT Care 06/19/19 01:47 Active Ang Chest [CT] Stat Exams 06/19/19 03:12 Taken Chest 2V [CR] Stat Exams 06/19/19 01:46 Taken Sodium Chloride 0.9% [Normal Saline] 1,000 ml Med 06/19/19 03:15 Active IV ASDIRECTED Sodium Chloride 0.9% [Normal Saline] 100 ml Med 06/19/19 04:00 Active IV ASDIRECTED Medication Orders Sodium Chloride (Normal Saline) 1,000 mls @ 150 mls/hr IV ASDIRECTED NATALIO Last Admin: 06/19/19 03:20 Dose: 150 mls/hr Sodium Chloride (Normal Saline) 100 mls @ 4 mls/sec IV ASDIRECTED NATALIO Last Admin: 06/19/19 04:04 Dose: 4 mls/sec Labs: Laboratory Tests 06/19/19 06/19/19 06/19/19 Range/Units 02:05 02:05 02:05 WBC 12.08 H (3.98-10.04) K/mm3 RBC 4.71 (3.98-5.22) M/mm3 Hgb 13.4 (11.2-15.7) gm/dl Hct 40.0 (34.1-44.9) % MCV 84.9 (79.4-94.8) fl MCH 28.5 (25.6-32.2) pg MCHC 33.5 (32.2-35.5) g/dl RDW Std Deviation 41.2 (36.4-46.3) fL Plt Count 225 (182-369) K/mm3 MPV 9.7 (9.4-12.3) fl Neut % (Auto) 73.0 H (34.0-71.1) % Lymph % (Auto) 19.1 L (19.3-51.7) % Marion % (Auto) 6.5 (4.7-12.5) % Eos % (Auto) 0.9 (0.7-5.8) Baso % (Auto) 0.2 (0.1-1.2) % Neut # (Auto) 8.81 H (1.56-6.13) K/mm3 Lymph # (Auto) 2.31 (1.18-3.74) K/mm3 Marion # (Auto) 0.79 H (0.24-0.36) K/mm3 Eos # (Auto) 0.11 (0.04-0.36) K/mm3 Baso # (Auto) 0.02 (0.01-0.08) K/mm3 D-Dimer, Quantitative 0.60 H (0.19-0.50) mg/L Sodium 135 L (136-145) mEq/L Potassium 3.5 (3.5-5.1) mEq/L Chloride 101 (98-107) mEq/L Carbon Dioxide 24 (21-32) mEq/L Anion Gap 13.5 (5-15) BUN 21 H (7-18) mg/dL Creatinine 1.0 (0.55-1.02) mg/dL Est Cr Clr Drug Dosing 76.19 mL/min Estimated GFR (MDRD) > 60 (>60) mL/min BUN/Creatinine Ratio 21.0 H (14-18) Glucose 172 H (74-106) mg/dL Calcium 8.8 (8.5-10.1) mg/dL Magnesium 1.6 L (1.8-2.4) mg/dl Total Bilirubin 0.3 (0.2-1.0) mg/dL AST 9 L (15-37) U/L ALT 26 (14-59) U/L Alkaline Phosphatase 84 (46-116) U/L Troponin I < 0.017 (0.00-0.056) ng/mL Total Protein 6.9 (6.4-8.2) g/dl Albumin 3.6 (3.4-5.0) g/dl Globulin 3.3 gm/dL Albumin/Globulin Ratio 1.1 (1-2) TSH 3rd Generation 1.154 (0.358-3.74) uIU/mL Meds: Medications Generic Name Dose Route Start Last Admin Trade Name Freq PRN Reason Stop Dose Admin Sodium Chloride 1,000 mls @ 150 mls/hr 06/19/19 03:15 06/19/19 03:20 Normal Saline IV 150 mls/hr ASDIRECTED NATALIO Administration Sodium Chloride 100 mls @ 4 mls/sec 06/19/19 04:00 06/19/19 04:04 Normal Saline IV 4 mls/sec ASDIRECTED NATALIO Administration Discontinued Medications Generic Name Dose Route Start Last Admin Trade Name Freq PRN Reason Stop Dose Admin Magnesium Sulfate 2 gm/ Premix 50 mls @ 50 mls/hr 06/19/19 03:06 06/19/19 03: 20 IV 06/19/19 04:05 50 mls/hr ONETIME ONE Administration Iopamidol 100 ml 06/19/19 03:46 06/19/19 04:04 Isovue-370 (76%) IVPUSH 06/19/19 03:47 100 ml ONETIME ONE Administration Iopamidol 40 ml 06/19/19 03:46 06/19/19 04:04 Isovue-370 (76%) IVPUSH 06/19/19 03:47 40 ml ONETIME ONE Administration Ketorolac Tromethamine 30 mg 06/19/19 03:12 06/19/19 03:20 Toradol IVPUSH 06/19/19 03:13 30 mg ONETIME STA Administration - Re-Assessments/Exams Free Text/Narrative Re-Assessment/Exam: 06/19/19 01:49 The etiology of the patient's symptoms is not immediately clear. It may be that because of her DI, she is intravascularly dry, therefore I ordered orthostatics. I have also ordered a CBC to make sure that she is not anemic, and a CMP and magnesium level to make sure that she has not suffered any significant electrolyte imbalances. I ordered a d-dimer to rule out a PE, and a troponin, ECG and chest x-ray given her complaint of dyspnea and chest heaviness. Lasix, I ordered a TSH to rule out severe hypothyroidism, given the constellation of her symptoms. 06/19/19 02:18 The patient is not orthostatic. 2-view chest radiograph appears to be grossly normal. The cardiac silhouette is within normal limits. No pulmonary vascular congestion. No pleural effusions. No focal infiltrate. No pneumothorax. Formal read per the Radiologist pending. 06/19/19 03:06 Test results discussed with the patient and her . The patient's CBCIs remarkable for a WBC count mildly elevated at 12.08, with 73 % neutrophilia. The remainder of her CBC is unremarkable. Her CMP is remarkable for a sodium slightly depressed at 135, a BUN slightly elevated at 21,, and a blood glucose elevated at 172. The remainder of her CMP is unremarkable. Her magnesium level is mildly depressed at 1.6. Her troponin is undetectably low. Her D-dimer is mildly elevated at 0.60. Her TSH is within normal limits at 1.154. I doubt that the patient's mild hypomagnesemia is responsible for any symptoms, but I offered to replace it, and the patient agreed. I have ordered a 2 g Mg- rider. Similarly, I would expect that if the patient had a pulmonary embolus, her D- dimer would be significantly elevated, not just mildly elevated. Nevertheless, I offered to perform a CT angiogram of the chest to definitively rule out a pulmonary embolus, and the patient agreed to that, as well. I have ordered a CT angiogram of the chest, along with IV fluid. The patient requested something for her chest discomfort. I have ordered Toradol. 06/19/19 04:28 CT angiogram of the chest is read by vRtaras as "No acute findings." 06/19/19 04:31 CT angiogram results discussed with the patient and her . As above, with the exception of mild hypomagnesemia, which I don't think is responsible for the patient's symptoms, the remainder of her workup is unremarkable, and does not explain her symptoms. I offered to place the patient into observation so that she could be evaluated by the Hospitalist, but the patient prefers to go home and follow-up with her PCP. Departure - Departure Time of Disposition: 04:33 Disposition: Home, Self-Care 01 Condition: Good Clinical Impression: Lightheaded, Dyspnea, Chest heaviness, Nausea & vomiting, Chills, Hyperglycemia due to type 2 diabetes mellitus - Discharge Information *PRESCRIPTION DRUG MONITORING PROGRAM REVIEWED*: Not Applicable *COPY OF PRESCRIPTION DRUG MONITORING REPORT IN PATIENT RENA: Not Applicable Referrals: Ana Luisa Gale MD [Primary Care Provider] - Robin Sousa MD [Ordering Only Provider] - Forms: ED Department Discharge Additional Instructions: You were seen in the emergency room for lightheadedness, slight shortness of breath, chest heaviness, nausea, vomiting, chills, the sensation of heavy limbs , and the sensation of your heart beating harder. Workup in the ER included blood work, positional blood pressure checks, a chest x-ray, a CT angiogram of your chest, and an ECG. Your magnesium was found to be slightly low. You received IV replacement magnesium. The remainder of your workup was unremarkable. You are not dehydrated. You do not have pneumonia or other infection. You are not anemic. The rest of your electrolytes were within normal limits. You have not suffered a heart attack. You do not have a blood clot in your lungs. Your thyroid level is within normal limits. The cause of your symptoms is not known. Placement observation was offered, but declined. We recommend that you follow-up with your PCP, Dr. Ana Luisa Gale, at the next available appointment, for further evaluation. If any other problems, please do not hesitate to return to the ER. - My Orders Last 24 Hours: My Active Orders 06/19/19 01:46 Chest 2V [CR] Stat 06/19/19 01:47 EKG Documentation Completion [RC] STAT Orthostatic Vital Signs [RC] STAT 06/19/19 03:12 Ang Chest [CT] Stat 06/19/19 03:15 Sodium Chloride 0.9% [Normal Saline] 1,000 ml IV ASDIRECTED 06/19/19 04:00 Sodium Chloride 0.9% [Normal Saline] 100 ml IV ASDIRECTED - Assessment/Plan Last 24 Hours: My Active Orders 06/19/19 01:46 Chest 2V [CR] Stat 06/19/19 01:47 EKG Documentation Completion [RC] STAT Orthostatic Vital Signs [RC] STAT 06/19/19 03:12 Ang Chest [CT] Stat 06/19/19 03:15 Sodium Chloride 0.9% [Normal Saline] 1,000 ml IV ASDIRECTED 06/19/19 04:00 Sodium Chloride 0.9% [Normal Saline] 100 ml IV ASDIRECTED
[2019-06-19] MEDS ORDERED: Magnesium Sulfate/Water 2 GM in Premix Bag 1 BAG IV ONE (03:06)
[2019-06-19] MEDS ORDERED: Ketorolac 30 MG/ML SDV IVPUSH STA (03:12)
[2019-06-19] MEDS ORDERED: Sodium Chloride 0.9% 1,000 ML IV SCH (03:15)
[2019-06-19] MEDS ORDERED: Iopamidol 755 Mg/ML 100 ML Bottle IVPUSH ONE (03:46)
[2019-06-19] MEDS ORDERED: Iopamidol 755 MG/ML 50 ML Bottle IVPUSH ONE (03:46)
[2019-06-19] MEDS ORDERED: Sodium Chloride 0.9% 100 ML IV SCH (04:00)
[2019-06-19 04:52] VITALS: BP 125/66; PULSE 94
--- NOTE | 2019-06-19 06:46 | CR ---
Chest: Two views of the chest were obtained. Comparison: Prior chest x-ray of 03/15/19. Heart size and mediastinum are normal. Lungs are clear. Bony structures appear within normal limits. Surgical clips are seen from prior cholecystectomy. Impression: 1. Nothing acute is seen on two-view chest x-ray. Diagnostic code #1
--- NOTE | 2019-06-19 07:43 | CT ---
CT chest Technique: Multiple axial sections were obtained from above the lung apices inferiorly through the lung bases. Intravenous contrast was utilized. Study was performed as a pulmonary angiogram protocol. Comparison: Previous CT chest of 03/16/19. Findings: Pulmonary arteries are well opacified. No filling defects are seen to indicate pulmonary embolism. Aorta shows no aneurysm. No pericardial thickening or fluid is seen. Surgical clips are noted within the upper abdomen from prior cholecystectomy. No mediastinal mass or hilar mass is seen. Small normal-appearing lymph nodes are noted. Lungs show no acute parenchymal change. No pleural effusions are seen. Bone window settings were reviewed which appear within normal limits for the patient's age. Impression: 1. No findings of pulmonary embolism. 2. Nothing acute is appreciated on CT study of the chest. Diagnostic code #1 I agree with preliminary report from [facility], finalized on 06/19/19, 5:25 AM Central Time
== END 2019-06-19 04:49 | disposition home or self-care (01) ==
LOC: JD.ED 01:09
DX: E11.65 Type 2 diabetes mellitus with hyperglycemia (principal); R06.00 Dyspnea, unspecified; R07.9 Chest pain, unspecified; R68.83 Chills (without fever); E78.00 Pure hypercholesterolemia, unspecified; F41.9 Anxiety disorder, unspecified; F32.9 Major depressive disorder, single episode, unspecified; E11.40 Type 2 diabetes mellitus with diabetic neuropathy, unspecified; E23.2 Diabetes insipidus; K21.9 Gastro-esophageal reflux disease without esophagitis; F17.210 Nicotine dependence, cigarettes, uncomplicated; E66.9 Obesity, unspecified; Z68.34 Body mass index [BMI] 34.0-34.9, adult; Z88.8 Allergy status to other drugs, medicaments and biological substances; Z91.048 Other nonmedicinal substance allergy status; Z79.899 Other long term (current) drug therapy; Z79.84 Long term (current) use of oral hypoglycemic drugs
CPT/HCPCS: 36415; 71046; 71275; 80053; 83735; 84443; 84484; 85025; 85379; 93005; 96365; 96375; 99285; J1885; J3475; J7030; J7040; Q9967; 93010; 99284

== ENCOUNTER 2019-07-28 21:45 | Emergency (ER) | payer OTHER ==
[2019-07-28 21:52] VITALS: BP 145/71; PULSE 90
--- NOTE | 2019-07-28 22:30 | EDM.PDOC ---
ED HPI GENERAL MEDICAL PROBLEM - General Chief Complaint: Upper Extremity Injury/Pain Stated Complaint: wrist injury Time Seen by Provider: 07/28/19 21:57 Source of Information: Reports: Patient History Limitations: Reports: No Limitations - History of Present Illness INITIAL COMMENTS - FREE TEXT/NARRATIVE: The patient slipped and fell on the ice and landed on her left arm. She has pain to the left wrist. She did not hurt her head or neck. She has no chest pain, abdominal pain, hip or leg pain. Onset: Sudden Duration: Hour(s): Location: Reports: Upper Extremity, Left (Wrist) Quality: Reports: Sharp Severity: Moderate Improves with: Reports: None Worsens with: Reports: None Associated Symptoms: Reports: No Other Symptoms Left Wrist Pain Score (Numeric/FACES): 7 - Related Data Allergies Allergy/AdvReac Type Severity Reaction Status Date / Time adalimumab [From Humira] Allergy Other Verified 07/28/19 21:52 haloperidol [From Haldol] Allergy Itching Verified 07/28/19 21:52 infliximab [From Remicade] Allergy Other Verified 07/28/19 21:52 prochlorperazine edisylate Allergy Other Verified 07/28/19 21:52 [From Compazine] prochlorperazine maleate Allergy Other Verified 07/28/19 21:52 [From Compazine] bandaids Allergy Rash Uncoded 04/26/19 21:01 Home Meds: Home Meds Gabapentin [Neurontin] 100 mg PO TID 04/02/17 [History] Indomethacin 50 mg PO DAILY PRN 04/02/17 [History] metFORMIN [Glucophage XR] 500 mg PO ACDINNER 12/17/17 [History] traMADol [Ultram] 50 mg PO Q6H PRN 03/28/18 [History] Pantoprazole [ProTONIX] 40 mg PO BEDTIME 06/13/18 [History] Pravastatin [Pravachol] 20 mg PO DAILY 03/15/19 [History] Desmopressin [Desmopressin 0.1% Nasal [place]] 2 spray MELVIN DAILY 04/16/19 [History ] Ergocalciferol (Vitamin D2) [Vitamin D2] 2,000 units PO DAILY 04/16/19 [History] FLUoxetine HCl [Fluoxetine HCl] 40 mg PO DAILY 04/16/19 [History] Semaglutide [Ozempic] 0.5 mg SQ ASDIRECTED 04/16/19 [History] Indomethacin 100 mg PO BEDTIME 06/19/19 [History] Past Medical History HEENT History: Reports: Impaired Vision Other HEENT History: 4 eye surgerys Cardiovascular History: Reports: High Cholesterol Respiratory History: Reports: None Gastrointestinal History: Reports: Diverticulosis, GERD Genitourinary History: Reports: Urinary Incontinence 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 Hematologic History: Reports: None Immunologic History: Reports: None Oncologic (Cancer) History: Reports: None Other Dermatologic History: "Skin peels on my hands." - Infectious Disease History Infectious Disease History: Reports: Chicken Pox - Past Surgical History Head Surgeries/Procedures: Reports: None HEENT Surgical History: Reports: Eye Surgery, Naso-Sinus Surgery, Oral Surgery, Tonsillectomy GI Surgical History: Reports: Cholecystectomy Female Surgical History: Reports: Hysterectomy, Other (See Below) Musculoskeletal Surgical History: Reports: ORIF Social & Family History - Family History Family Medical History: Noncontributory - Tobacco Use Smoking Status *Q: Current Every Day Smoker Years of Tobacco use: 20 Packs/Tins Daily: 0.5 - Caffeine Use Caffeine Use: Reports: None - Recreational Drug Use Recreational Drug Use: No - Living Situation & Occupation Living situation: Reports: , with Spouse, with Family (3 kids) 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) Review of Systems - Review of Systems Review Of Systems: See Below Constitutional: Reports: No Symptoms Eyes: Reports: No Symptoms Ears: Reports: No Symptoms Nose: Reports: No Symptoms Mouth/Throat: Reports: No Symptoms Respiratory: Reports: No Symptoms Cardiovascular: Reports: No Symptoms GI/Abdominal: Reports: No Symptoms Genitourinary: Reports: No Symptoms Musculoskeletal: Reports: Other (Left wrist pain) ED EXAM, GENERAL - Physical Exam Exam: See Below Exam Limited By: No Limitations General Appearance: Alert, No Apparent Distress Ears: Normal External Exam Nose: Normal Inspection Head: Atraumatic, Normocephalic Neck: Normal Inspection Respiratory/Chest: No Respiratory Distress Extremities: Other (Pain upon palpation to the left wrist with some mild swelling. Good sensation and pulses distally.) Course - Vital Signs Last Recorded V/S: Last Vital Signs Temp 97.3 F 07/28/19 21:50 Pulse 90 07/28/19 21:50 Resp 16 07/28/19 21:50 BP 145/71 H 07/28/19 21:50 Pulse Ox 97 07/28/19 21:50 - Orders/Labs/Meds Orders: Active Orders 24 hr Category Date Time Status Wrist Comp Min 3V Lt [CR] Stat Exams 07/28/19 21:54 Taken Durable Medical Equipment for Discharge [DME for Oth 07/28/19 22:33 Ordered Discharge] [COMM] Stat - Re-Assessments/Exams Free Text/Narrative Re-Assessment/Exam: 07/28/19 22:30 I ordered an x-ray of her wrist and it shows nothing acute. I will discharge her home. 07/28/19 22:34 I will also give her a wrist splint. Departure - Departure Time of Disposition: 22:35 Disposition: Home, Self-Care 01 Condition: Good Clinical Impression: Fall Qualifiers: Encounter type: initial encounter Qualified Code(s): W19.XXXA - Unspecified fall, initial encounter Sprain of left wrist Qualifiers: Encounter type: initial encounter Qualified Code(s): S63.502A - Unspecified sprain of left wrist, initial encounter - Discharge Information *PRESCRIPTION DRUG MONITORING PROGRAM REVIEWED*: No *COPY OF PRESCRIPTION DRUG MONITORING REPORT IN PATIENT RENA: No Referrals: Ana Luisa Gale MD [Primary Care Provider] - 1 Week Forms: ED Department Discharge Additional Instructions: Ice your wrist for 15 minutes 3 times per day for 2 days. Try to elevate it above your heart as much as you can for a couple days. Take tylenol or motrin for pain. Please return if you are worse. Follow up with your doctor if you are not better within a week. - My Orders Last 24 Hours: My Active Orders 07/28/19 21:54 Wrist Comp Min 3V Lt [CR] Stat 07/28/19 22:33 Durable Medical Equipment for Discharge [DME for Discharge] [COMM] Stat - Assessment/Plan Last 24 Hours: My Active Orders 07/28/19 21:54 Wrist Comp Min 3V Lt [CR] Stat 07/28/19 22:33 Durable Medical Equipment for Discharge [DME for Discharge] [COMM] Stat
--- NOTE | 2019-07-31 09:12 | CR ---
Left wrist: Four views of the left wrist were obtained. Comparison: No prior wrist exam is available. Joint spaces are preserved. No fracture, dislocation or other bony abnormality is appreciated. Impression: 1. No abnormality is identified on three-view left wrist exam. Diagnostic code #1 This report was dictated in [place] Standard Time
== END 2019-07-28 22:42 | disposition home or self-care (01) ==
LOC: JD.ED 21:45
DX: S63.502A Unspecified sprain of left wrist, initial encounter (principal); E78.5 Hyperlipidemia, unspecified; K21.9 Gastro-esophageal reflux disease without esophagitis; F32.9 Major depressive disorder, single episode, unspecified; F41.9 Anxiety disorder, unspecified; E11.40 Type 2 diabetes mellitus with diabetic neuropathy, unspecified; E66.9 Obesity, unspecified; Z68.33 Body mass index [BMI] 33.0-33.9, adult; F17.210 Nicotine dependence, cigarettes, uncomplicated; Z88.8 Allergy status to other drugs, medicaments and biological substances; Z91.09 Other allergy status, other than to drugs and biological substances; Z79.84 Long term (current) use of oral hypoglycemic drugs; Z79.899 Other long term (current) drug therapy; W00.0XXA Fall on same level due to ice and snow, initial encounter
CPT/HCPCS: 29125; 73110-26-LT; 73110-LT; 99282; 99283-25

== ENCOUNTER 2019-10-03 19:06 | Emergency (ER) | payer OTHER ==
--- NOTE | 2019-10-03 19:44 | EDM.PDOC ---
ED HPI GENERAL MEDICAL PROBLEM - General Chief Complaint: Neurological Problem Stated Complaint: DIZZY Time Seen by Provider: 10/03/19 19:07 Source of Information: Reports: Patient, Family () History Limitations: Reports: No Limitations - History of Present Illness INITIAL COMMENTS - FREE TEXT/NARRATIVE: Mrs. Lim is a 39-year-old woman with a past medical history significant for a traumatic brain injury in 1997, with resultant diabetes insipidus migraines. She also has diabetes with diabetic neuropathy, untreated rheumatoid arthritis, anxiety, depression, and fibromyalgia, who now presents to the ED stating that she developed nausea without emesis, and abdominal cramps with copious abdominal gurgling last night. This morning around 08:00, she then developed dizziness, that she describes as the room spinning with virtually any movement, including just her eyes. She also developed a sensation of hearing and ocean in her left ear, although she denies decreased hearing. She has been experiencing palpitations, the sensation of an extra, hard, but painless beat all day, although she acknowledges that that symptom is chronic for her. A prior Holter monitor evaluation was negative. The patient reports that she has similar symptoms, although less severe, about once every 2 months, for the past 2 to 3 years. She states that she is treated with meclizine, although denies that she has had a specific work-up to the cause of her symptoms. She states that she took a meclizine around 13:00 today , with no improvement in her symptoms. No recent fever, although the patient reports chronically feeling chilled. She reports having a chronic "smokers" cough although no recent dyspnea. No recent chest pain. She reports chronic constipation (she had previously reported to me chronic watery diarrhea). She reports an intentional 15 pound weight loss over the past 4 months. No recent bloody bowel movements or black bowel movements. No recent rashes. She states that she is currently developing a migraine, and that her rheumatoid arthritis causes her to have chronic joint pain. She also reports feeling like an electric current is going through her entire body whenever she steps down, a new symptom for her. The patient's PCP is Dr. Ana Luisa Gale. Her Calf Skinner is Dr. Robin Sousa, at . Her Windows Support Engineer is Dr. Jose Smith. She received an influenza vaccine this season. - Related Data Allergies Allergy/AdvReac Type Severity Reaction Status Date / Time adalimumab [From Humira] Allergy Other Verified 10/03/19 19:17 haloperidol [From Haldol] Allergy Itching Verified 10/03/19 19:17 infliximab [From Remicade] Allergy Other Verified 10/03/19 19:17 prochlorperazine edisylate Allergy Other Verified 10/03/19 19:17 [From Compazine] prochlorperazine maleate Allergy Other Verified 10/03/19 19:17 [From Compazine] bandaids Allergy Rash Uncoded 04/26/19 21:01 Home Meds: Home Meds Gabapentin [Neurontin] 100 mg PO TID 04/02/17 [History] Indomethacin 50 mg PO DAILY PRN 04/02/17 [History] metFORMIN [Glucophage XR] 500 mg PO ACDINNER 12/17/17 [History] traMADol [Ultram] 50 mg PO Q6H PRN 03/28/18 [History] Pantoprazole [ProTONIX] 40 mg PO BEDTIME 06/13/18 [History] Pravastatin [Pravachol] 20 mg PO DAILY 03/15/19 [History] Desmopressin [Desmopressin 0.1% Nasal [place]] 2 spray MELVIN DAILY 04/16/19 [History ] Ergocalciferol (Vitamin D2) [Vitamin D2] 2,000 units PO DAILY 04/16/19 [History] FLUoxetine HCl [Fluoxetine HCl] 40 mg PO DAILY 04/16/19 [History] Semaglutide [Ozempic] 0.5 mg SQ ASDIRECTED 04/16/19 [History] Indomethacin 100 mg PO BEDTIME 06/19/19 [History] Past Medical History HEENT History: Reports: Impaired Vision Cardiovascular History: Reports: High Cholesterol Gastrointestinal History: Reports: Diverticulosis (diverticulitis), GERD Genitourinary History: Reports: Urinary Incontinence (stress incontinence) ATTENDING PSYCHIATRIST History: Reports: Endometriosis (laparoscopy-confirmed) Musculoskeletal History: Reports: Fracture (left forearm) Neurological History: Reports: Brain Injury (1997), Migraines, Neuropathy, Diabetic Psychiatric History: Reports: Anxiety, Depression, Other (See Below) ( Fibromyalgia) Endocrine/Metabolic History: Reports: Diabetes, Type II, Obesity/BMI 30+, Other (See Below) (Diabetes insipidus) Immunologic History: Reports: Other (See Below) (Rheumatoid arthritis - untreated) - Infectious Disease History Infectious Disease History: Reports: Chicken Pox - Past Surgical History HEENT Surgical History: Reports: Eye Surgery, Naso-Sinus Surgery (sinus reconstruction), Oral Surgery (wisdom teeth extraction), Tonsillectomy GI Surgical History: Reports: Cholecystectomy (around 2008) Female Surgical History: Reports: Hysterectomy (partial), Other (See Below) ( Exploratory laparoscopy for endometriosis) Musculoskeletal Surgical History: Reports: ORIF (left forearm) Social & Family History - Family History Family Medical History: Noncontributory - Tobacco Use Smoking Status *Q: Current Every Day Smoker Years of Tobacco use: 22 Packs/Tins Daily: 1 Packs/Tins Daily Comment: Down from 1.5 ppd - Caffeine Use Caffeine Use: Reports: Coffee, Soda - Alcohol Use Alcohol Use History: Yes Alcohol Use Frequency: Socially (occasionally to excess) - Recreational Drug Use Recreational Drug Use: No - Living Situation & Occupation Living situation: Reports: , with Spouse, with Family (3 kids) 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 ED EXAM, DIZZINESS - Physical Exam Exam: See Below Exam Limited By: No Limitations General Appearance: Alert, WD/WN, No Apparent Distress Eye Exam: Bilateral Eye: EOMI, Normal Inspection Nystagmus: No: reproducible (unable to induce with [place]-Hallpike maneuver, left or right) Ears: Normal External Exam, Normal Canal, Hearing Grossly Normal, Normal TMs Nose: Normal Inspection, Normal Mucosa, No Blood Throat/Mouth: Normal Inspection, Normal Lips, Normal Teeth, Normal Gums, Normal Oropharynx, Normal Voice, No Airway Compromise Head Exam: Atraumatic, Normocephalic Vertigo: No: reproducible (unable to induce with [place]-Hallpike maneuver, left or right) Neck: Normal Inspection, Supple, Non-Tender, Full Range of Motion. No: Lymphadenopathy (L), Lymphadenopathy (R) Respiratory/Chest: No Respiratory Distress, Lungs Clear, Normal Breath Sounds, No Accessory Muscle Use Cardiovascular: Normal Peripheral Pulses, Regular Rate, Rhythm, No Edema, No Gallop, No JVD, No Murmur, No Rub GI/Abdominal: Normal Bowel Sounds, Soft, Non-Tender, No Organomegaly, No Distention, No Abnormal Bruit, No Mass (Female) Exam: Deferred Rectal (Female) Exam: Deferred Neurological: Alert, No Motor/Sensory Deficits, Oriented x 3 Back Exam: Normal Inspection, Full Range of Motion, NT Extremities: Normal Inspection, Normal Range of Motion, No Pedal Edema, Normal Capillary Refill Psychiatric: Flat Affect Skin Exam: Warm, Dry, Intact, Normal Color, No Rash EKG INTERPRETATION EKG Date: 10/03/19 Time: 20:07 Rhythm: NSR Rate (Beats/Min): 78 [place]: Normal P-Wave: Present QRS: Normal ST-T: Normal QT: Normal Comparison: No Change (06/19/2019) Course - Vital Signs Last Recorded V/S: Last Vital Signs Temp 37.0 C 10/03/19 19:13 Pulse 103 H 10/03/19 19:13 Resp 14 10/03/19 19:13 BP 136/99 H 10/03/19 19:13 Pulse Ox 98 10/03/19 19:13 Orthostatic Blood Pressure [ 147/100 Standing] Orthostatic Blood Pressure [ 138/91 Supine] - Orders/Labs/Meds Orders: Active Orders 24 hr Category Date Time Status EKG Documentation Completion [RC] STAT Care 10/03/19 19:38 Active Orthostatic Vital Signs [RC] STAT Care 10/03/19 19:38 Active Chest 2V [CR] Stat Exams 10/03/19 19:37 Taken Labs: Laboratory Tests 10/03/19 10/03/19 10/03/19 Range/Units 19:55 19:55 19:55 WBC 8.98 (3.98-10.04) K/mm3 RBC 4.92 (3.98-5.22) M/mm3 Hgb 14.1 (11.2-15.7) gm/dl Hct 42.6 (34.1-44.9) % MCV 86.6 (79.4-94.8) fl MCH 28.7 (25.6-32.2) pg MCHC 33.1 (32.2-35.5) g/dl RDW Std Deviation 41.5 (36.4-46.3) fL Plt Count 246 (182-369) K/mm3 MPV 10.1 (9.4-12.3) fl Neutrophils % (Manual) 81 H (40-60) % Band Neutrophils % 0 (0-10) % Lymphocytes % (Manual) 14 L (20-40) % Atypical Lymphs % 0 % Monocytes % (Manual) 1 L (2-10) % Eosinophils % (Manual) 4 (0.7-5.8) % Basophils % (Manual) 0 L (0.1-1.2) Platelet Estimate Adequate RBC Morph Comment Normal D-Dimer, Quantitative 0.39 (0.19-0.50) mg/L Sodium 141 (136-145) mEq/L Potassium 3.6 (3.5-5.1) mEq/L Chloride 105 (98-107) mEq/L Carbon Dioxide 24 (21-32) mEq/L Anion Gap 15.6 H (5-15) BUN 16 (7-18) mg/dL Creatinine 1.0 (0.55-1.02) mg/dL Est Cr Clr Drug Dosing 72.72 mL/min Estimated GFR (MDRD) > 60 (>60) mL/min BUN/Creatinine Ratio 16.0 (14-18) Glucose 234 H (74-106) mg/dL Calcium 8.7 (8.5-10.1) mg/dL Magnesium 1.8 (1.8-2.4) mg/dl Total Bilirubin 0.2 (0.2-1.0) mg/dL AST 6 L (15-37) U/L ALT 24 (14-59) U/L Alkaline Phosphatase 81 (46-116) U/L Troponin I < 0.017 (0.00-0.056) ng/mL Total Protein 7.1 (6.4-8.2) g/dl Albumin 3.4 (3.4-5.0) g/dl Globulin 3.7 gm/dL Albumin/Globulin Ratio 0.9 L (1-2) TSH 3rd Generation 1.124 (0.358-3.74) uIU/mL - Re-Assessments/Exams Free Text/Narrative Re-Assessment/Exam: 10/03/19 19:40 As above, the patient is complaining of dizziness, and is describing vertigo, however, when I performed the Etna-Hallpike maneuver, no nystagmus, or even vertiginous symptoms, were induced, therefore I do not think the patient is suffering from genuine vertigo. Given her history of both diabetes mellitus and diabetes insipidus, intravascular depletion is always a risk for her, therefore I have ordered a work-up that includes orthostatics to check for evidence of intravascular depletion. I have also ordered a CMP and magnesium level. I have ordered a CBC to evaluate for severe anemia or suggestion of an infection. I have ordered a TSH level to rule out severe hyper or hypothyroidism, although neither is suggested based on her history or physical examination. I have ordered a D-dimer to evaluate for a PE. I have ordered an ECG given her complaint of palpitations, and a chest x-ray given her complaint of palpitations and chronic cough. 10/03/19 20:01 The patient is not orthostatic. 10/03/19 20:43 2-view chest radiograph reviewed. The cardiac silhouette is within normal limits. No pulmonary vascular congestion. No pleural effusions. No focal infiltrate. No pneumothorax. Surgical clips projected over the right upper quadrant consistent with prior cholecystectomy incidentally noted. Formal read per the Radiologist pending. The patient's CBC is unremarkable. Her CMP is remarkable for an anion gap mildly elevated at 15.6, but with a bicarbonate normal at 24. Her blood glucose is elevated at 234. The remainder of her CMP is unremarkable. Her magnesium level is within normal limits at 1.8. Her TSH is within normal limits at 1.124. Her troponin is undetectably low. Her D-dimer is within normal limits at 0.39. As above, today's work-up is unremarkable, and does not explain the cause of the patient's symptoms. She may benefit from evaluation by ENT. 10/03/19 20:48 The above was explained to the patient (her was not present). She is agreeable to following up with ENT. Departure - Departure Time of Disposition: 20:48 Disposition: Home, Self-Care 01 Condition: Good Clinical Impression: Dizziness, Hyperglycemia due to type 2 diabetes mellitus - Discharge Information *PRESCRIPTION DRUG MONITORING PROGRAM REVIEWED*: Not Applicable *COPY OF PRESCRIPTION DRUG MONITORING REPORT IN PATIENT RENA: Not Applicable Referrals: Ana Luisa Gale MD [Primary Care Provider] - Gareth Gan MD [Ordering Only Provider] - Robin Sousa MD [Ordering Only Provider] - Jose Smith MD [Ordering Only Provider] - Forms: ED Department Discharge Additional Instructions: You were seen in the emergency room after developing nausea and abdominal cramps last night, then dizziness and the sound of an ocean in your left ear this morning. Work-up in the ER included blood work, positional blood pressure checks, a chest x-ray, and an ECG. Your blood sugar was found to be elevated at 234. The remainder of your work-up , however, was unremarkable, and does not explain the cause of your symptoms. It is possible that you may be suffering from an inner ear issue. For this reason, we recommend that you follow-up with Dr. Gareth Gan, an ENT in [place] , at the next available appointment. If any other problems, please do not hesitate to return to the ER. Sepsis Event Note - Evaluation Sepsis Screening Result: No Definite Risk - Focused Exam Vital Signs: Vital Signs Temp Pulse Resp BP Pulse Ox 10/03/19 19:13 37.0 C 103 H 14 136/99 H 98 Date Exam was Performed: 10/03/19 Time Exam was Performed: 20:43 - My Orders Last 24 Hours: My Active Orders 10/03/19 19:37 Chest 2V [CR] Stat 10/03/19 19:38 EKG Documentation Completion [RC] STAT Orthostatic Vital Signs [RC] STAT - Assessment/Plan Last 24 Hours: My Active Orders 10/03/19 19:37 Chest 2V [CR] Stat 10/03/19 19:38 EKG Documentation Completion [RC] STAT Orthostatic Vital Signs [RC] STAT
[2019-10-03 21:09] VITALS: BP 129/85; PULSE 99
--- NOTE | 2019-10-04 07:43 | CR ---
Chest: Two views of the chest were obtained. Comparison: Prior chest x-ray of 06/19/19. Heart size and mediastinum are within normal limits. Lungs are clear with no acute parenchymal change. Bony structures are unremarkable. Surgical clips are seen within the upper abdomen. Impression: 1. Nothing acute is appreciated on two-view chest x-ray. Diagnostic code #2 This report was dictated in [place] Standard Time
== END 2019-10-03 21:04 | disposition home or self-care (01) ==
LOC: JD.ED 19:06
DX: R42 Dizziness and giddiness (principal); E11.65 Type 2 diabetes mellitus with hyperglycemia; E78.00 Pure hypercholesterolemia, unspecified; E11.40 Type 2 diabetes mellitus with diabetic neuropathy, unspecified; M06.9 Rheumatoid arthritis, unspecified; K21.9 Gastro-esophageal reflux disease without esophagitis; E23.2 Diabetes insipidus; F32.9 Major depressive disorder, single episode, unspecified; F17.210 Nicotine dependence, cigarettes, uncomplicated; E66.9 Obesity, unspecified; Z68.34 Body mass index [BMI] 34.0-34.9, adult; Z88.8 Allergy status to other drugs, medicaments and biological substances; Z91.048 Other nonmedicinal substance allergy status; Z79.899 Other long term (current) drug therapy; Z79.84 Long term (current) use of oral hypoglycemic drugs
CPT/HCPCS: 36415; 71046; 71046-26; 80053; 83735; 84443; 84484; 85007; 85027; 85379; 93005; 93010; 99283; 99284-25

== ENCOUNTER 2020-02-07 07:02 | Day surgery (SDC) | payer OTHER ==
[~2020-02-07 07:02] MED LIST: Lactated Ringers 1,000 ML IV SCH; Lidocaine 1%/Sod Bicarbonate in NS 8.4% 1 ML Syringe IDERM PRN; Sodium Chloride 0.9% 10 ML Syringe FLUSH PRN
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
[2020-02-07] MEDS ORDERED: Propofol 200 MG/20 ML SDV ONE (07:39)
[2020-02-07] MEDS ORDERED: fentaNYL 100 MCG/2 ML SDV ONE (07:39)
[2020-02-07] MEDS ORDERED: Ondansetron 4 MG/2 ML SDV ONE (07:39)
[2020-02-07] MEDS ORDERED: Midazolam 1 MG/ML 2 ML SDV ONE (07:40)
[2020-02-07] MEDS ORDERED: Bupivacaine 0.25% 10 ML SDV ONE (07:40)
[2020-02-07] MEDS ORDERED: Lidocaine 1% 30 ML SDV ONE (07:40)
[2020-02-07] MEDS ORDERED: Lidocaine 1% 4 ML ONE (07:41)
[2020-02-07] MEDS ORDERED: ceFAZolin 1 GM Vial ONE (07:43)
[2020-02-07] MEDS ORDERED: Ketorolac 30 MG/ML SDV ONE (08:28)
--- NOTE | 2020-02-07 08:41 | PCM48HPAN ---
Post Anesthesia Note - EVALUATION WITHIN 48HRS OF ANESTHETIC Vital Signs in Normal Range: Yes Patient Participated in Evaluation: Yes Respiratory Function Stable: Yes Airway Patent: Yes Cardiovascular Function Stable: Yes Hydration Status Stable: Yes Pain Control Satisfactory: Yes Nausea and Vomiting Control Satisfactory: Yes Mental Status Recovered: Yes Vital Signs: Last Vital Signs Temp 36.6 C 02/07/20 07:10 Pulse 86 02/07/20 07:10 Resp 16 02/07/20 07:10 BP 132/76 02/07/20 07:10 Pulse Ox 95 02/07/20 07:10 - COMMENTS/OBSERVATIONS Free Text/Narrative:: no anesthesia complications noted
--- NOTE | 2020-02-07 08:44 | PCM.OPNOTE ---
- General Post-Op/Procedure Note Date of Surgery/Procedure: 02/07/20 Operative Procedure(s): right carpal tunnel release Pre Op Diagnosis: right median nerve compression neuropathy Post-Op Diagnosis: Same Anesthesia Technique: Local, MAC Primary Surgeon: Julian Jose Anesthesia Provider: Priscilla Vogt Procedures Analyst: Mary Wong EBL in mLs: 5 Complications: None Condition: Good
[2020-02-07 09:17] VITALS: BP 120/77; PULSE 72
--- NOTE | 2020-02-09 11:19 | OR ---
DATE OF OPERATION: 02/07/2020 SURGEON: Julian Jose MD OPERATION PERFORMED: Right carpal tunnel release. PREOPERATIVE DIAGNOSIS: Right median nerve compression neuropathy. POSTOPERATIVE DIAGNOSIS: Right median nerve compression neuropathy. ANESTHESIA: Local MAC. ANESTHESIA PROVIDER: Vanessa Randle. STATE FARM AGENT: Mary Wong PA-C. ESTIMATED BLOOD LOSS: Less than 5 mL. COMPLICATIONS: None. CONDITION: Stable. DESCRIPTION OF PROCEDURE: The patient was identified in the preop holding area. Proper site was marked and identified by the surgeon. The patient was taken back to the operating theater where after adequate anesthesia, the patient's right upper extremity was sterilely prepped and draped in the usual sterile fashion. OR time-out was performed. The patient did not receive antibiotics and it is not indicated for soft tissue hand procedure. At this time, the right upper extremity was exsanguinated and an Esmarch was used as a tourniquet on the forearm. At this time, using 1% lidocaine without epinephrine and 0.25% Marcaine without epinephrine, the palmar cutaneous branch of the median nerve was anesthetized and then the incisional site was anesthetized using Vigil cardinal line and ulnar border of the fourth digit as reference. Once this had set up, an incision was made. Blunt dissection was taken down to the palmar cutaneous fascia. Palmar cutaneous fascia was incised with a [place] blade. At this time, the transverse carpal ligament was identified. A small rent was made in the transverse carpal ligament with a [place] blade under direct visualization. Resection of the transverse carpal ligament was done distally using tenotomy scissors making sure to stop short of the palmar arch. At this time, attention was turned proximally after it was found to be adequately released. Using the tenotomy scissors keeping the tips ulnar to protect the palmar cutaneous branch of the median nerve, the superficial forearm fascia as well as the transverse carpal ligament were resected proximally. It was found to be adequate release both proximally and distally. At this time, adequate saline was irrigated through the wound. 4-0 nylon sutures were used closure of the skin. The patient was placed in a sterile soft dressing and sent to PACU in stable condition. MMODAL /[id number]
== END 2020-02-07 09:11 | disposition home or self-care (01) ==
LOC: JD.SDS 07:02
PROVIDERS: ATTEND Orthopaedic Surgery
DX: G56.01 Carpal tunnel syndrome, right upper limb (principal); Z11.59 Encounter for screening for other viral diseases; F32.9 Major depressive disorder, single episode, unspecified; E78.5 Hyperlipidemia, unspecified; E23.2 Diabetes insipidus; F17.210 Nicotine dependence, cigarettes, uncomplicated; G47.00 Insomnia, unspecified; Z91.011 Allergy to milk products; Z88.8 Allergy status to other drugs, medicaments and biological substances; Z79.899 Other long term (current) drug therapy; Z79.84 Long term (current) use of oral hypoglycemic drugs
CPT/HCPCS: 64721; 82962; 87635; 87641; J0690; J1885; J2001; J2250; J2405; J2704; J3010; J3490; J7120; U0002

== ENCOUNTER 2020-02-26 06:19 | Day surgery (SDC) | payer OTHER ==
[2020-02-26] MEDS ORDERED: Bupivacaine 0.25% 10 ML SDV ONE (06:49)
[2020-02-26] MEDS ORDERED: Lidocaine 1% 30 ML SDV ONE (06:49)
[2020-02-26] MEDS ORDERED: Propofol 200 MG/20 ML SDV ONE (06:50)
[2020-02-26] MEDS ORDERED: fentaNYL 100 MCG/2 ML SDV ONE (06:50)
[2020-02-26] MEDS ORDERED: Midazolam 1 MG/ML 2 ML SDV ONE (06:51)
[2020-02-26] MEDS ORDERED: ceFAZolin 1 GM Vial ONE (06:52)
[2020-02-26] MEDS ORDERED: Lidocaine 1% 4 ML ONE (07:02)
--- NOTE | 2020-02-26 07:41 | PCM.OPNOTE ---
- General Post-Op/Procedure Note Date of Surgery/Procedure: 02/26/20 Operative Procedure(s): left carpal tunnel release Pre Op Diagnosis: left median nerve compression neuropathy Post-Op Diagnosis: Same Anesthesia Technique: Local, MAC Primary Surgeon: Julian Jose Anesthesia Provider: Macario Carmen Mortgage Processing Clerk: Mary Wong EBL in mLs: 5 Complications: None Condition: Good
--- NOTE | 2020-02-26 07:42 | PCM.PREANE ---
Preanesthetic Assessment - Procedure Proposed Procedure: carpal tunnel release - Anesthesia/Transfusion/Family Hx Anesthesia History: Prior Anesthesia Without Reaction Family History of Anesthesia Reaction: No Transfusion History: No Prior Transfusion(s) - Review of Systems General: No Symptoms Pulmonary: No Symptoms (smoker) Cardiovascular: No Symptoms Gastrointestinal: No Symptoms Neurological: Numbness (left hand) Other: Reports: None - Physical Assessment NPO Status Date: 02/25/20 NPO Status Time: 22:30 Vital Signs: Last Vital Signs Temp 36.2 C 02/26/20 06:20 Pulse 98 02/26/20 06:20 Resp 20 02/26/20 06:20 BP 133/87 02/26/20 06:20 Pulse Ox 96 02/26/20 06:20 Height: 1.73 m Weight: 102.965 kg ASA Class: 3 Mental Status: Alert & Oriented x3 Airway Class: Mallampati = 1 Dentition: Reports: Normal Dentition, Caries Thyro-Mental Finger Breadths: 3 Mouth Opening Finger Breadths: 3 ROM/Head Extension: Full Lungs: Clear to Auscultation, Normal Respiratory Effort Cardiovascular: Regular Rate, Regular Rhythm - Lab Values: Laboratory Last Values COVID-19 PCR Not detected (NOT DETECT) 02/23/20 11:00 - Allergies Allergies/Adverse Reactions: Allergies Allergy/AdvReac Type Severity Reaction Status Date / Time adalimumab [From Humira] Allergy Other Verified 02/07/20 07:51 haloperidol [From Haldol] Allergy Itching Verified 02/07/20 07:51 infliximab [From Remicade] Allergy Other Verified 02/07/20 07:51 prochlorperazine edisylate Allergy Other Verified 02/07/20 07:51 [From Compazine] prochlorperazine maleate Allergy Other Verified 02/07/20 07:51 [From Compazine] bandaids Allergy Rash Uncoded 04/26/19 21:01 - Blood Blood Available: No Product(s) Available: None - Anesthesia Plan Pre-Op Medication Ordered: None - Acknowledgements Anesthesia Type Planned: MAC Pt an Appropriate Candidate for the Planned Anesthesia: Yes Alternatives and Risks of Anesthesia Discussed w Pt/Guardian: Yes Pt/Guardian Understands and Agrees with Anesthesia Plan: Yes PreAnesthesia Questionnaire HEENT History: Reports: Impaired Vision Other HEENT History: 4 eye surgerys Cardiovascular History: Reports: High Cholesterol Respiratory History: Reports: None Gastrointestinal History: Reports: Diverticulosis (diverticulitis), GERD Genitourinary History: Reports: Urinary Incontinence (stress incontinence) 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 Hematologic History: Reports: None Immunologic History: Reports: Other (See Below) (Rheumatoid arthritis - untreated) Oncologic (Cancer) History: Reports: None Other Dermatologic History: "Skin peels on my hands." - Infectious Disease History Infectious Disease History: Reports: Chicken Pox - Past Surgical History HEENT Surgical History: Reports: Eye Surgery, Naso-Sinus Surgery (sinus reconstruction), Oral Surgery (wisdom teeth extraction), Tonsillectomy GI Surgical History: Reports: Cholecystectomy (around 2008) Female Surgical History: Reports: Hysterectomy (partial), Other (See Below) (Exploratory laparoscopy for endometriosis) Musculoskeletal Surgical History: Reports: ORIF (left forearm) - HOME MEDS Home Medications: Home Meds metFORMIN [Glucophage XR] 500 mg PO ACDINNER 12/17/17 [History] Pantoprazole [ProTONIX] 40 mg PO BEDTIME 06/13/18 [History] Pravastatin [Pravachol] 20 mg PO DAILY 03/15/19 [History] Desmopressin [Desmopressin 0.1% Nasal [place]] 2 spray MELVIN DAILY 04/16/19 [History ] Ergocalciferol (Vitamin D2) [Vitamin D2] 2,000 units PO DAILY 04/16/19 [History] FLUoxetine HCl [Fluoxetine HCl] 40 mg PO DAILY 04/16/19 [History] Semaglutide [Ozempic] 0.5 mg SQ ASDIRECTED 04/16/19 [History] Acetaminophen/HYDROcodone [[place] 325-5 MG] 1 - 2 tab PO Q6H PRN #10 tablet 02/26/20 [Rx] - CURRENT (IN HOUSE) MEDS Current Meds: Current Medications Lactated Ringer's (Ringers, Lactated) 1,000 mls @ 125 mls/hr IV ASDIRECTED NATALIO Stop: 02/26/20 23:00 Last Admin: 02/26/20 06:30 Dose: 125 mls/hr Documented by: Lidocaine/Sodium Bicarbonate (Buffered Lidocaine 1% In Ns 8.4%) 0.25 ml IDERM ONETIME PRN PRN Reason: Prior to IV Start Stop: 02/26/20 18:00 Last Admin: 02/26/20 06:30 Dose: 0.25 ml Documented by: Sodium Chloride (Saline Flush) 10 ml FLUSH ASDIRECTED PRN PRN Reason: Keep Vein Open Stop: 02/26/20 18:00 Discontinued Medications Bupivacaine HCl (Sensorcaine-Mpf 0.25%) Confirm Administered Dose 10 ml .ROUTE .STK-MED ONE Stop: 02/26/20 06:50 Cefazolin Sodium (Ancef) Confirm Administered Dose 2 gm .ROUTE .STK-MED ONE Stop: 02/26/20 06:53 Fentanyl (Sublimaze) Confirm Administered Dose 100 mcg .ROUTE .STK-MED ONE Stop: 02/26/20 06:51 Lidocaine HCl (Xylocaine-Mpf 1%) Confirm Administered Dose 4 mls @ as directed .ROUTE .STK-MED ONE Stop: 02/26/20 07:03 Lidocaine HCl (Xylocaine-Mpf 1%) Confirm Administered Dose 30 ml .ROUTE .STK-MED ONE Stop: 02/26/20 06:50 Midazolam HCl (Versed 1 Mg/Ml) Confirm Administered Dose 2 mg .ROUTE .STK-MED ONE Stop: 02/26/20 06:52 Propofol (Diprivan 20 Ml) Confirm Administered Dose 200 mg .ROUTE .STK-MED ONE Stop: 02/26/20 06:51
--- NOTE | 2020-02-26 07:43 | PCM48HPAN ---
Post Anesthesia Note - EVALUATION WITHIN 48HRS OF ANESTHETIC Vital Signs in Normal Range: Yes Patient Participated in Evaluation: Yes Respiratory Function Stable: Yes Airway Patent: Yes Cardiovascular Function Stable: Yes Hydration Status Stable: Yes Pain Control Satisfactory: Yes Nausea and Vomiting Control Satisfactory: Yes Mental Status Recovered: Yes Vital Signs: Last Vital Signs Temp 36.2 C 02/26/20 06:20 Pulse 98 02/26/20 06:20 Resp 20 02/26/20 06:20 BP 133/87 02/26/20 06:20 Pulse Ox 96 02/26/20 06:20 - COMMENTS/OBSERVATIONS Free Text/Narrative:: no anesthesia complications noted
[2020-02-26 08:33] VITALS: BP 109/70; PULSE 75
--- NOTE | 2020-02-26 13:38 | OR ---
DATE OF OPERATION: 02/26/2020 SURGEON: Julian Jose MD OPERATION PERFORMED: Left carpal tunnel release. PREOPERATIVE DIAGNOSIS: Left median nerve compression neuropathy. POSTOPERATIVE DIAGNOSIS: Left median nerve compression neuropathy. ANESTHESIA: Local MAC. ANESTHESIA PROVIDER: Chang Kim. SPEEDBOAT DRIVER: Mary Wong PA-C. ESTIMATED BLOOD LOSS: Less than 5 mL. COMPLICATIONS: None. CONDITION: Stable. DESCRIPTION OF PROCEDURE: The patient was identified in the preop holding area. Proper site was marked and identified by the surgeon. The patient was taken back to the operating theater where after adequate anesthesia, the patient's left upper extremity was sterilely prepped and draped in the usual sterile fashion. OR time-out was performed. The patient did not receive antibiotics and it is not indicated for soft tissue hand procedure. At this time, the left upper extremity was exsanguinated and an Esmarch was used as a tourniquet on the forearm. At this time, using 1% lidocaine without epinephrine and 0.25% Marcaine without epinephrine, the palmar cutaneous branch of the median nerve was anesthetized and then the incisional site was anesthetized using Vigil cardinal line and ulnar border of the fourth digit as reference. Once this had set up, an incision was made. Blunt dissection was taken down to the palmar cutaneous fascia. Palmar cutaneous fascia was incised with a [place] blade. At this time, the transverse carpal ligament was identified. A small rent was made in the transverse carpal ligament with a [place] blade under direct visualization. Resection of the transverse carpal ligament was done distally using tenotomy scissors making sure to stop short of the palmar arch. At this time, attention was turned proximally after it was found to be adequately released. Using the tenotomy scissors keeping the tips ulnar to protect the palmar cutaneous branch of the median nerve, the superficial forearm fascia as well as the transverse carpal ligament were resected proximally. It was found to be adequate release both proximally and distally. At this time, adequate saline was irrigated through the wound. 4-0 nylon sutures were used closure of the skin. The patient was placed in a sterile soft dressing and sent to PACU in stable condition. MMODAL /[id number]
== END 2020-02-26 08:14 | disposition home or self-care (01) ==
LOC: JD.SDS 06:19
PROVIDERS: ATTEND Orthopaedic Surgery
DX: G56.02 Carpal tunnel syndrome, left upper limb (principal); G47.00 Insomnia, unspecified; F41.9 Anxiety disorder, unspecified; F32.9 Major depressive disorder, single episode, unspecified; E23.2 Diabetes insipidus; F17.210 Nicotine dependence, cigarettes, uncomplicated; E78.00 Pure hypercholesterolemia, unspecified; K21.9 Gastro-esophageal reflux disease without esophagitis; E78.5 Hyperlipidemia, unspecified; E11.40 Type 2 diabetes mellitus with diabetic neuropathy, unspecified; Z11.59 Encounter for screening for other viral diseases; Z88.8 Allergy status to other drugs, medicaments and biological substances; Z79.84 Long term (current) use of oral hypoglycemic drugs; Z79.899 Other long term (current) drug therapy
CPT/HCPCS: 64721; 82962; 87635; J0690; J2001; J2250; J2704; J3010; J3490; J7120; U0002

== ENCOUNTER 2020-03-10 20:28 | Emergency (ER) | payer OTHER ==
[2020-03-10 20:38] VITALS: BP 117/96; PULSE 91
--- NOTE | 2020-03-10 21:09 | EDM.PDOC ---
ED HPI GENERAL MEDICAL PROBLEM - General Chief Complaint: Lower Extremity Injury/Pain Stated Complaint: RIGHT BIG TOE DROPPED SPEAKER ON IT Time Seen by Provider: 03/10/20 20:34 Source of Information: Reports: Patient History Limitations: Reports: No Limitations - History of Present Illness INITIAL COMMENTS - FREE TEXT/NARRATIVE: Patient is a 39-year-old female who presents with complaints of pain to the base of her right great toe. She states last evening she dropped a speaker on her foot while cleaning. Since that time she has had pain and swelling. She states she is unable to move the toe. Denies any previous injury to this extremity. She has taken oxycodone and tramadol for pain. - Related Data Allergies Allergy/AdvReac Type Severity Reaction Status Date / Time adalimumab [From Humira] Allergy Other Verified 03/10/20 20:38 haloperidol [From Haldol] Allergy Itching Verified 03/10/20 20:38 infliximab [From Remicade] Allergy Other Verified 03/10/20 20:38 prochlorperazine edisylate Allergy Other Verified 03/10/20 20:38 [From Compazine] prochlorperazine maleate Allergy Other Verified 03/10/20 20:38 [From Compazine] bandaids Allergy Rash Uncoded 03/10/20 20:38 Home Meds: Home Meds metFORMIN [Glucophage XR] 500 mg PO ACDINNER 12/17/17 [History] Pantoprazole [ProTONIX] 40 mg PO BEDTIME 06/13/18 [History] Pravastatin [Pravachol] 20 mg PO DAILY 03/15/19 [History] Desmopressin [Desmopressin 0.1% Nasal [place]] 2 spray MELVIN DAILY 04/16/19 [History] FLUoxetine HCl [Fluoxetine HCl] 40 mg PO DAILY 04/16/19 [History] Semaglutide [Ozempic] 0.5 mg SQ ASDIRECTED 04/16/19 [History] ALPRAZolam [Xanax] 0.25 mg PO DAILY PRN 02/26/20 [History] Acetaminophen/HYDROcodone [[place] 325-5 MG] 1 - 2 tab PO Q6H PRN #10 tablet 02/26/20 [Rx] Cyanocobalamin (Vitamin B-12) [Vitamin B-12] 1,000 mcg PO DAILY 06/29/20 [History] Cyclobenzaprine [Flexeril] 10 mg PO TID PRN 02/26/20 [History] Mv-Mn/Iron/Folic Acid/Herb 190 [Vitamin D3 Complete Caplet] 2,000 units PO DAILY 02/26/20 [History] Venlafaxine [Effexor] 75 mg PO DAILY 02/26/20 [History] calcium polycarbophiL [Fiber Tabs] 625 mg PO DAILY 02/26/20 [History] traZODone HCl [Trazodone HCl] 50 mg PO BEDTIME PRN 02/26/20 [History] Past Medical History HEENT History: Reports: Impaired Vision Other HEENT History: 4 eye surgerys Cardiovascular History: Reports: High Cholesterol Respiratory History: Reports: None Gastrointestinal History: Reports: Diverticulosis, GERD Genitourinary History: Reports: Urinary Incontinence 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 Hematologic History: Reports: None Immunologic History: Reports: Other (See Below) Oncologic (Cancer) History: Reports: None Other Dermatologic History: "Skin peels on my hands." - Infectious Disease History Infectious Disease History: Reports: Chicken Pox - Past Surgical History Head Surgeries/Procedures: Reports: None HEENT Surgical History: Reports: Eye Surgery, Naso-Sinus Surgery, Oral Surgery, Tonsillectomy GI Surgical History: Reports: Cholecystectomy Female Surgical History: Reports: Hysterectomy, Other (See Below) Musculoskeletal Surgical History: Reports: Carpal Tunnel, ORIF Social & Family History - Family History Family Medical History: Noncontributory - Tobacco Use Smoking Status *Q: Current Every Day Smoker Years of Tobacco use: 19 Packs/Tins Daily: 1 - Caffeine Use Caffeine Use: Reports: Coffee, Soda - Recreational Drug Use Recreational Drug Use: No - Living Situation & Occupation Living situation: Reports: , with Spouse, with Family (3 kids) 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 ED EXAM, GENERAL - Physical Exam Exam: See Below Exam Limited By: No Limitations General Appearance: Alert, WD/WN, No Apparent Distress Respiratory/Chest: No Respiratory Distress, Lungs Clear, Normal Breath Sounds, No Accessory Muscle Use, Chest Non-Tender Cardiovascular: Normal Peripheral Pulses, Regular Rate, Rhythm, No Edema, No Gallop, No JVD, No Murmur, No Rub Extremities: Other (Slight swelling and bruising to the base of the right great toe. No obvious deformity.) Neurological: Alert, Oriented, CN II-XII Intact, Normal Cognition, Normal Gait, Normal Reflexes, No Motor/Sensory Deficits Psychiatric: Normal Affect, Normal Mood Skin Exam: Warm, Dry, Intact, Normal Color, No Rash Course - Vital Signs Last Recorded V/S: Last Vital Signs Temp 97.4 F 03/10/20 20:36 Pulse 91 03/10/20 20:36 Resp 16 03/10/20 20:36 BP 117/96 H 03/10/20 20:36 Pulse Ox 98 03/10/20 20:36 - Orders/Labs/Meds Orders: Active Orders 24 hr Category Date Time Status Toes Great Toe Rt T5 [CR] Stat Exams 03/10/20 20:44 Taken - Re-Assessments/Exams Free Text/Narrative Re-Assessment/Exam: 03/10/20 21:07 X-rays were completed and show no acute fractures. Recommend ice and elevation. Discussed that she may use a surgical shoe for comfort as needed. She states she does have one at home from when her daughter injured her toe. Discharge instructions as documented. Departure - Departure Time of Disposition: 21:07 Disposition: Home, Self-Care 01 Condition: Good Clinical Impression: Toe contusion Qualifiers: Encounter type: initial encounter Toe: great toe Damage to nail status: without damage Laterality: right Qualified Code(s): S90.111A - Contusion of right great toe without damage to nail, initial encounter - Discharge Information *PRESCRIPTION DRUG MONITORING PROGRAM REVIEWED*: No *COPY OF PRESCRIPTION DRUG MONITORING REPORT IN PATIENT RENA: No Instructions: Contusion, [id number] Referrals: Ana Luisa Gale MD [Primary Care Provider] - Additional Instructions: You were seen in the emergency department for pain, bruising, and swelling to the base of your right great toe after dropping a speaker on it. X-rays were completed and did not show any acute fractures. Recommend that you ice and elevate the extremity intermittently over the next few days. You may use the surgical shoe that you have at home as needed for comfort. Use [id number] Tylenol or ibuprofen as needed for pain. Return to the ER as needed. Sepsis Event Note (ED) - Evaluation Sepsis Screening Result: No Definite Risk - Focused Exam Vital Signs: Vital Signs Temp Pulse Resp BP Pulse Ox 03/10/20 20:36 97.4 F 91 16 117/96 H 98 - My Orders Last 24 Hours: My Active Orders 03/10/20 20:44 Toes Great Toe Rt T5 [CR] Stat - Assessment/Plan Last 24 Hours: My Active Orders 03/10/20 20:44 Toes Great Toe Rt T5 [CR] Stat
--- NOTE | 2020-03-10 21:20 | CR ---
Right 1st toe: 4 views centered to the right 1st toe were obtained. Comparison: No previous foot or toe study is available. Findings: Joint spaces are preserved. No fracture, dislocation or other bony abnormality is seen. No soft tissue foreign body is seen. No focal erosions are seen. Impression: 1. No abnormality is appreciated on right 1st toe study. Diagnostic code #1 This report was dictated in MDT
== END 2020-03-10 21:16 | disposition home or self-care (01) ==
LOC: JD.ED 20:28
DX: S90.111A Contusion of right great toe without damage to nail, initial encounter (principal); E78.00 Pure hypercholesterolemia, unspecified; K21.9 Gastro-esophageal reflux disease without esophagitis; F41.9 Anxiety disorder, unspecified; F32.9 Major depressive disorder, single episode, unspecified; E11.9 Type 2 diabetes mellitus without complications; E66.9 Obesity, unspecified; Z68.34 Body mass index [BMI] 34.0-34.9, adult; F17.210 Nicotine dependence, cigarettes, uncomplicated; Z88.8 Allergy status to other drugs, medicaments and biological substances; Z91.048 Other nonmedicinal substance allergy status; Z79.84 Long term (current) use of oral hypoglycemic drugs; Z79.899 Other long term (current) drug therapy; Z88.6 Allergy status to analgesic agent; W20.8XXA Other cause of strike by thrown, projected or falling object, initial encounter
CPT/HCPCS: 73660-26-T5; 73660-T5; 99282; 99283-25

== ENCOUNTER 2020-05-27 17:26 | Emergency (ER) | payer OTHER ==
[2020-05-27 17:38] VITALS: BP 129/93; PULSE 84
--- NOTE | 2020-05-27 18:20 | EDM.PDOC ---
ED HPI GENERAL MEDICAL PROBLEM - General Chief Complaint: Laceration Stated Complaint: L INDEX FINGER LAC Time Seen by Provider: 05/27/20 17:39 Source of Information: Reports: Patient History Limitations: Reports: No Limitations - History of Present Illness INITIAL COMMENTS - FREE TEXT/NARRATIVE: The patient presents with a laceration to her left index finger. She was working in her yard. She is right handed and her tetanus is up to date. Onset: Sudden Duration: Minutes: Location: Reports: Upper Extremity, Left (index finger) Quality: Reports: Sharp Severity: Mild Improves with: Reports: None Worsens with: Reports: None Associated Symptoms: Reports: No Other Symptoms Left Finger-Index Pain Score (Numeric/FACES): 8 - Related Data Allergies Allergy/AdvReac Type Severity Reaction Status Date / Time adalimumab [From Humira] Allergy Other Verified 05/27/20 17:38 haloperidol [From Haldol] Allergy Itching Verified 05/27/20 17:38 infliximab [From Remicade] Allergy Other Verified 05/27/20 17:38 prochlorperazine edisylate Allergy Other Verified 05/27/20 17:38 [From Compazine] prochlorperazine maleate Allergy Other Verified 05/27/20 17:38 [From Compazine] bandaids Allergy Rash Uncoded 03/10/20 20:38 Home Meds: Home Meds metFORMIN [Glucophage XR] 500 mg PO ACDINNER 12/17/17 [History] Pantoprazole [ProTONIX] 40 mg PO BEDTIME 06/13/18 [History] Pravastatin [Pravachol] 20 mg PO DAILY 03/15/19 [History] Desmopressin [Desmopressin 0.1% Nasal [place]] 2 spray MELVIN DAILY 04/16/19 [History] FLUoxetine HCl [Fluoxetine HCl] 40 mg PO DAILY 04/16/19 [History] Semaglutide [Ozempic] 0.5 mg SQ ASDIRECTED 04/16/19 [History] ALPRAZolam [Xanax] 0.25 mg PO DAILY PRN 02/26/20 [History] Cyanocobalamin (Vitamin B-12) [Vitamin B-12] 1,000 mcg PO DAILY 02/26/20 [History] Cyclobenzaprine [Flexeril] 10 mg PO TID PRN 02/26/20 [History] Mv-Mn/Iron/Folic Acid/Herb 190 [Vitamin D3 Complete Caplet] 2,000 units PO DAILY 02/26/20 [History] Venlafaxine [Effexor] 75 mg PO DAILY 02/26/20 [History] calcium polycarbophiL [Fiber Tabs] 625 mg PO DAILY 02/26/20 [History] traZODone HCl [Trazodone HCl] 50 mg PO BEDTIME PRN 02/26/20 [History] traMADol [Ultram] 50 mg PO ASDIRECTED PRN 05/27/20 [History] Past Medical History HEENT History: Reports: Impaired Vision Other HEENT History: 4 eye surgerys Cardiovascular History: Reports: High Cholesterol Respiratory History: Reports: None Gastrointestinal History: Reports: Diverticulosis, GERD Genitourinary History: Reports: Urinary Incontinence 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 Hematologic History: Reports: None Immunologic History: Reports: Other (See Below) Oncologic (Cancer) History: Reports: None Other Dermatologic History: "Skin peels on my hands." - Infectious Disease History Infectious Disease History: Reports: Chicken Pox - Past Surgical History Head Surgeries/Procedures: Reports: None HEENT Surgical History: Reports: Eye Surgery, Naso-Sinus Surgery, Oral Surgery, Tonsillectomy GI Surgical History: Reports: Cholecystectomy Female Surgical History: Reports: Hysterectomy, Other (See Below) Musculoskeletal Surgical History: Reports: Carpal Tunnel, ORIF Social & Family History - Family History Family Medical History: Noncontributory - Tobacco Use Smoking Status *Q: Current Every Day Smoker Years of Tobacco use: 19 Packs/Tins Daily: 1 - Caffeine Use Caffeine Use: Reports: Coffee, Soda - Recreational Drug Use Recreational Drug Use: No - Living Situation & Occupation Living situation: Reports: , with Spouse, with Family (3 kids) 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) ED ROS GENERAL - Review of Systems Review Of Systems: See Below Constitutional: Reports: No Symptoms HEENT: Reports: No Symptoms Respiratory: Reports: No Symptoms Cardiovascular: Reports: No Symptoms Endocrine: Reports: No Symptoms GI/Abdominal: Reports: No Symptoms : Reports: No Symptoms Musculoskeletal: Reports: Other (Left index finger laceration) ED EXAM, SKIN/RASH Exam: See Below Exam Limited By: No Limitations General Appearance: Alert, No Apparent Distress Ears: Normal External Exam Nose: Normal Inspection Head: Atraumatic, Normocephalic Neck: Normal Inspection Respiratory/Chest: No Respiratory Distress Extremities: Other (0.9cm laceration next the nail of the left index finger. Good sensation and capillary refill distally) ED SKIN PROCEDURES - Laceration/Wound Repair Left Digit - 2nd (Index) Appearance: Superficial Distal NVT: Neuro & Vascular Intact, No Tendon Injury Skin Prep: Saline Exploration/Debridement/Repair: Wound Explored, In a Bloodless Field, Explored to Base Closed with: Wound Adhesive Lac/Wound length In cm: 0.9 Tetanus Status Addressed: Yes Complications: No Course - Vital Signs Last Recorded V/S: Last Vital Signs Temp 98.1 F 05/27/20 17:34 Pulse 84 05/27/20 17:34 Resp 16 05/27/20 17:34 BP 129/93 H 05/27/20 17:34 Pulse Ox 98 05/27/20 17:34 - Re-Assessments/Exams Free Text/Narrative Re-Assessment/Exam: 05/27/20 18:17 I used adhesive to close the wound. Departure - Departure Time of Disposition: 18:30 Disposition: Home, Self-Care 01 Condition: Good Clinical Impression: Finger laceration Qualifiers: Encounter type: initial encounter Finger: index finger Damage to nail status: without damage Foreign body presence: without foreign body Laterality: left Qualified Code(s): S61.211A - Laceration without foreign body of left index finger without damage to nail, initial encounter - Discharge Information *PRESCRIPTION DRUG MONITORING PROGRAM REVIEWED*: Not Applicable *COPY OF PRESCRIPTION DRUG MONITORING REPORT IN PATIENT RENA: Not Applicable Referrals: Ana Luisa Gale MD [Primary Care Provider] - Additional Instructions: Let the adhesive set up for a couple of hours. After that you can wash your hands like normal. The adhesive should wear off over 7 to 10 days. Sepsis Event Note (ED) - Evaluation Sepsis Screening Result: No Definite Risk - Focused Exam Vital Signs: Vital Signs Temp Pulse Resp BP Pulse Ox 09/28/20 17:34 98.1 F 84 16 129/93 H 98
== END 2020-05-27 18:45 | disposition home or self-care (01) ==
LOC: JD.ED 17:26
DX: S61.211A Laceration without foreign body of left index finger without damage to nail, initial encounter (principal); E78.00 Pure hypercholesterolemia, unspecified; K21.9 Gastro-esophageal reflux disease without esophagitis; E11.40 Type 2 diabetes mellitus with diabetic neuropathy, unspecified; F32.9 Major depressive disorder, single episode, unspecified; F41.9 Anxiety disorder, unspecified; E66.9 Obesity, unspecified; F17.210 Nicotine dependence, cigarettes, uncomplicated; Z88.8 Allergy status to other drugs, medicaments and biological substances; Z91.048 Other nonmedicinal substance allergy status; Z79.899 Other long term (current) drug therapy; W26.8XXA Contact with other sharp object(s), not elsewhere classified, initial encounter; Y92.096 Garden or yard of other non-institutional residence as the place of occurrence of the external cause
CPT/HCPCS: 12001; 99282; 99282-25

== ENCOUNTER 2021-03-21 12:23 | Emergency (ER) | payer BC, OTHER ==
[2021-03-21 12:33] VITALS: BP 156/89; PULSE 72
[2021-03-21] MEDS ORDERED: Sodium Chloride 0.9% 1,000 ML IV ONE (12:44)
[2021-03-21] MEDS ORDERED: diphenhydrAMINE 50 MG/ML SDV IVPUSH ONE (12:44)
[2021-03-21] MEDS ORDERED: Famotidine 20 MG/2 ML SDV IVPUSH ONE (12:44)
[2021-03-21] MEDS ORDERED: Sodium Chloride 0.9% 10 ML Syringe FLUSH PRN (12:44)
[2021-03-21] MEDS ORDERED: HYDROmorphone 1 MG/ML Syringe IVPUSH ONE (12:45)
[2021-03-21] MEDS ORDERED: Metoclopramide 10 MG/2 ML SDV IVPUSH ONE (12:45)
[2021-03-21] MEDS ORDERED: Ketorolac 30 MG/ML SDV IVPUSH ONE (12:46)
--- NOTE | 2021-03-21 12:53 | EDM.PDOC ---
ED HPI GENERAL MEDICAL PROBLEM - General Chief Complaint: Bite:Animal, Insect Stated Complaint: BUG BITE/HEADACHE/NAUSEA Time Seen by Provider: 03/21/21 12:33 Source of Information: Reports: Patient, RN Notes Reviewed History Limitations: Reports: No Limitations - History of Present Illness INITIAL COMMENTS - FREE TEXT/NARRATIVE: Patient is a 40-year-old female presents to the ER for 2 different complaints. Patient states she was outside yesterday, and has a resultant bug bite on her left posterior arm, just above her elbow joint. The area of concern is roughly 7 to 8 cm in diameter, slightly raised, states that is itchy, and hot. She did take 1 dose of Benadryl last night, ended up vomiting last night, and has a resultant headache, with associated nausea this morning. Does state that she has some chills but has had no fever, no worsening cough or shortness of breath. Patient states that she has a history of migraines, and when they get this bad, she normally has to get IV medications. She was going to go to the walk-in clinic but notes that she doesn't think that they give any medications for the headache so she came to the ER. She did try some Tylenol at home as well and this did not seem to help much. Patient was not entirely sure of what sort of bug bit her. Headache Pain Score (Numeric/FACES): 8 - Related Data Allergies Allergy/AdvReac Type Severity Reaction Status Date / Time adalimumab [From Humira] Allergy Severe Other Verified 03/21/21 12:32 haloperidol [From Haldol] Allergy Severe Itching Verified 03/21/21 12:32 infliximab [From Remicade] Allergy Severe Other Verified 03/21/21 12:32 prochlorperazine edisylate Allergy Severe Other Verified 03/21/21 12:32 [From Compazine] prochlorperazine maleate Allergy Severe Other Verified 03/21/21 12:32 [From Compazine] bandaids Allergy Severe Rash Uncoded 03/21/21 12:32 Home Meds: Home Meds metFORMIN [Glucophage XR] 500 mg PO ACDINNER 12/17/17 [History] Pantoprazole [ProTONIX] 40 mg PO BEDTIME 06/13/18 [History] Pravastatin [Pravachol] 20 mg PO DAILY 03/15/19 [History] Desmopressin [Desmopressin 0.1% Nasal [place]] 2 spray MELVIN DAILY 04/16/19 [History] Cyanocobalamin (Vitamin B-12) [Vitamin B-12] 1,000 mcg PO DAILY 02/26/20 [History] Cyclobenzaprine [Flexeril] 10 mg PO TID PRN 02/26/20 [History] Mv-Mn/Iron/Folic Acid/Herb 190 [Vitamin D3 Complete Caplet] 2,000 units PO DAILY 02/26/20 [History] calcium polycarbophiL [Fiber Tabs] 625 mg PO DAILY 02/26/20 [History] traZODone HCl [Trazodone HCl] 50 mg PO BEDTIME PRN 02/26/20 [History] Past Medical History HEENT History: Reports: Impaired Vision Other HEENT History: 4 eye surgerys Cardiovascular History: Reports: High Cholesterol Gastrointestinal History: Reports: Diverticulosis, GERD Genitourinary History: Reports: Urinary Incontinence 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 Dermatologic History: Reports: Other (See Below) Other Dermatologic History: "Skin peels on my hands." - Infectious Disease History Infectious Disease History: Reports: Chicken Pox - Past Surgical History HEENT Surgical History: Reports: Eye Surgery, Naso-Sinus Surgery, Oral Surgery, Tonsillectomy, Other (See Below) Other HEENT Surgeries/Procedures: nose reconstruction 2 years ago GI Surgical History: Reports: Cholecystectomy Female Surgical History: Reports: Hysterectomy Musculoskeletal Surgical History: Reports: Carpal Tunnel, ORIF Social & Family History - Family History Family Medical History: No Pertinent Family History - Tobacco Use Tobacco Use Status *Q: Current Every Day Tobacco User Years of Tobacco use: 20 Packs/Tins Daily: 1 - Caffeine Use Caffeine Use: Reports: Coffee, Soda - Recreational Drug Use Recreational Drug Use: No - Living Situation & Occupation Living situation: Reports: , with Spouse, with Family (3 kids) 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 ED EXAM, ANIMAL BITE - Physical Exam Exam: See Below Exam Limited By: No Limitations General Appearance: Alert, WD/WN, No Apparent Distress Respiratory/Chest: No Respiratory Distress, Lungs Clear, Normal Breath Sounds, No Accessory Muscle Use, Chest Non-Tender Cardiovascular: Normal Peripheral Pulses, Regular Rate, Rhythm, No Edema GI/Abdominal: Normal Bowel Sounds, Soft, Non-Tender, No Distention, No Mass Extremities: Normal Range of Motion, Normal Capillary Refill Neurological: Alert, Oriented, Normal Cognition, No Motor/Sensory Deficits Psychiatric: Normal Affect, Normal Mood Skin Exam: Normal Color, Warm/Dry, Other (erythema to Left posterior arm, just above elbow; roughly 7-8cm in diameter, area is itchy and raised, some associated warmth.) Course - Vital Signs Last Recorded V/S: Last Vital Signs Temp 96.7 F L 03/21/21 12:30 Pulse 72 03/21/21 12:30 Resp 16 03/21/21 12:30 BP 156/89 H 03/21/21 12:30 Pulse Ox 97 03/21/21 12:30 - Orders/Labs/Meds Orders: Active Orders 24 hr Category Date Time Status Peripheral IV Care [RC] . DIRECTED Care 03/21/21 12:44 Active Sodium Chloride 0.9% [Normal Saline] 1,000 ml Med 03/21/21 12:44 Active IV ONETIME Sodium Chloride 0.9% [Saline Flush] Med 03/21/21 12:44 Active 10 ml FLUSH ASDIRECTED PRN Peripheral IV Insertion Adult [OM.PC] Stat Oth 03/21/21 12:44 Ordered Medication Orders Sodium Chloride (Normal Saline) 1,000 mls @ 500 mls/hr IV ONETIME ONE Stop: 03/21/21 14:43 Last Admin: 03/21/21 13:00 Dose: 500 mls/hr Documented by: IDA Sodium Chloride (Sodium Chloride 0.9% 10 Ml Syringe) 10 ml FLUSH ASDIRECTED PRN PRN Reason: Keep Vein Open Last Admin: 03/21/21 13:00 Dose: 10 ml Documented by: IDA Labs: Laboratory Tests 03/21/21 03/21/21 Range/Units 13:06 13:06 WBC 6.38 (3.98-10.04) K/mm3 RBC 4.86 (3.98-5.22) M/mm3 Hgb 14.3 (11.2-15.7) gm/dl Hct 43.5 (34.1-44.9) % MCV 89.5 (79.4-94.8) fl MCH 29.4 (25.6-32.2) pg MCHC 32.9 (32.2-35.5) g/dl RDW Std Deviation 44.2 (36.4-46.3) fL Plt Count 188 (182-369) K/mm3 MPV 10.2 (9.4-12.3) fl Neut % (Auto) 67.0 (34.0-71.1) % Lymph % (Auto) 22.7 (19.3-51.7) % [place] % (Auto) 8.8 (4.7-12.5) % Eos % (Auto) 1.1 (0.7-5.8) Baso % (Auto) 0.2 (0.1-1.2) % Neut # (Auto) 4.28 (1.56-6.13) K/mm3 Lymph # (Auto) 1.45 (1.18-3.74) K/mm3 [place] # (Auto) 0.56 H (0.24-0.36) K/mm3 Eos # (Auto) 0.07 (0.04-0.36) K/mm3 Baso # (Auto) 0.01 (0.01-0.08) K/mm3 Sodium 146 H (136-145) mEq/L Potassium 4.2 (3.5-5.1) mEq/L Chloride 110 H (98-107) mEq/L Carbon Dioxide 27 (21-32) mEq/L Anion Gap 13.2 (5-15) BUN 8 (7-18) mg/dL Creatinine 1.0 (0.55-1.02) mg/dL Est Cr Clr Drug Dosing 74.68 mL/min Estimated GFR (MDRD) > 60 (>60) mL/min BUN/Creatinine Ratio 8.0 L (14-18) Glucose 104 H (70-99) mg/dL Calcium 8.9 (8.5-10.1) mg/dL Total Bilirubin 0.2 (0.2-1.0) mg/dL AST 12 L (15-37) U/L ALT 27 (14-59) U/L Alkaline Phosphatase 76 (46-116) U/L Total Protein 7.3 (6.4-8.2) g/dl Albumin 3.7 (3.4-5.0) g/dl Globulin 3.6 gm/dL Albumin/Globulin Ratio 1.0 (1-2) Meds: Medications Generic Name Dose Route Start Last Admin Trade Name Freq PRN Reason Stop Dose Admin Sodium Chloride 1,000 mls @ 500 mls/hr 03/21/21 12:44 03/21/21 13:00 Normal Saline IV 03/21/21 14:43 500 mls/hr ONETIME ONE Administration Sodium Chloride 10 ml 03/21/21 12:44 03/21/21 13:00 Sodium Chloride 0.9% 10 Ml Syringe FLUSH 10 ml ASDIRECTED PRN Administration Keep Vein Open Discontinued Medications Generic Name Dose Route Start Last Admin Trade Name Freq PRN Reason Stop Dose Admin Diphenhydramine HCl 50 mg 03/21/21 12:44 03/21/21 13:00 Diphenhydramine 50 Mg/Ml Sdv IVPUSH 03/21/21 12:45 50 mg ONETIME ONE Administration Famotidine 20 mg 03/21/21 12:44 03/21/21 13:00 Famotidine 20 Mg/2 Ml Sdv IVPUSH 03/21/21 12:45 20 mg ONETIME ONE Administration Hydromorphone HCl 1 mg 03/21/21 12:45 Hydromorphone 1 Mg/Ml Syringe IVPUSH 03/21/21 12:46 ONETIME ONE Ketorolac Tromethamine 30 mg 03/21/21 12:46 03/21/21 13:00 Ketorolac 30 Mg/Ml Sdv IVPUSH 03/21/21 12:47 30 mg ONETIME ONE Administration Metoclopramide HCl 10 mg 03/21/21 12:45 03/21/21 13:00 Metoclopramide 10 Mg/2 Ml Sdv IVPUSH 03/21/21 12:46 10 mg ONETIME ONE Administration - Re-Assessments/Exams Free Text/Narrative Re-Assessment/Exam: 03/21/21 12:53 Patient presents to the ER for the evaluation of a headache, and her bug bite. Patient states that she is a type II diabetic and was worried about the possibility of cellulitis however this does look more like a local reaction at this time, we'll go ahead and give her some IV medications for the headache and bug bite, and check some basic labs for evaluation. 03/21/21 13:54 Labs are unremarkable, patient was re-assessed at bedside; and states that she feels much better. Her arm is less itchy and and the redness has lessened quite a bit as well, is also not as raised as it was when she came in. I did go over general management with this, and the patient verbalized understanding. Departure - Departure Time of Disposition: 13:56 Disposition: Home, Self-Care 01 Condition: Good Clinical Impression: Bug bite of shoulder or upper arm Headache Qualifiers: Headache type: other headache syndrome Qualified Code(s): G44.89 - Other headache syndrome - Discharge Information *PRESCRIPTION DRUG MONITORING PROGRAM REVIEWED*: No *COPY OF PRESCRIPTION DRUG MONITORING REPORT IN PATIENT RENA: No Instructions: General Headache Without Cause, [id number], Insect Bite, Adult, [id number] Referrals: Ana Luisa Gale MD [Primary Care Provider] - Forms: ED Department Discharge Additional Instructions: You were evaluated in the ER today for your headache, and bug bite on your left upper arm. You were given a few IV medications, for your headache and the bug bite on your arm, due to the local reaction you are having. These medications seem to help relieve most your symptoms. Laboratory evaluation today was unremarkable for any sign of bacterial infection to suggest a cellulitis in the area of the bug bite. This is most likely localized reaction and irritation. On an outpatient basis, recommend that you take a medication like Claritin or Zyrtec, [id number] and Pepcid (famotidine) daily for other antihistamine effects. You were given a dose of IV Pepcid in the ER for ongoing management. For nighttime purposes you may use Benadryl, (you may use this during the day as well every 4 hours as needed for ongoing local allergic reaction; However Benadryl might make you sleepy, so please caution the use of this during daytime hours). As for your headache, I recommend you follow-up with your primary care provider for ongoing management to see if further investigation is warranted, regarding possible prophylaxis medications, and or neurological referral for again further investigation. Please return to the ER at any time however if your symptoms should change or worsen. Sepsis Event Note (ED) - Evaluation Sepsis Screening Result: No Definite Risk - Focused Exam Vital Signs: Vital Signs Temp Pulse Resp BP Pulse Ox 03/21/21 12:30 96.7 F L 72 16 156/89 H 97 - My Orders Last 24 Hours: My Active Orders 03/21/21 12:44 Peripheral IV Care [RC] . DIRECTED Sodium Chloride 0.9% [Normal Saline] 1,000 ml IV ONETIME Sodium Chloride 0.9% [Saline Flush] 10 ml FLUSH ASDIRECTED PRN Peripheral IV Insertion Adult [OM.PC] Stat - Assessment/Plan Last 24 Hours: My Active Orders 03/21/21 12:44 Peripheral IV Care [RC] . DIRECTED Sodium Chloride 0.9% [Normal Saline] 1,000 ml IV ONETIME Sodium Chloride 0.9% [Saline Flush] 10 ml FLUSH ASDIRECTED PRN Peripheral IV Insertion Adult [OM.PC] Stat
== END 2021-03-21 14:07 | disposition home or self-care (01) ==
LOC: JD.ED 12:23
DX: S40.862A Insect bite (nonvenomous) of left upper arm, initial encounter (principal); G44.89 Other headache syndrome; E78.00 Pure hypercholesterolemia, unspecified; K21.9 Gastro-esophageal reflux disease without esophagitis; E11.9 Type 2 diabetes mellitus without complications; E66.9 Obesity, unspecified; Z68.35 Body mass index [BMI] 35.0-35.9, adult; Z72.0 Tobacco use; Z88.8 Allergy status to other drugs, medicaments and biological substances; Z91.048 Other nonmedicinal substance allergy status; Z79.84 Long term (current) use of oral hypoglycemic drugs; Z79.899 Other long term (current) drug therapy; W57.XXXA Bitten or stung by nonvenomous insect and other nonvenomous arthropods, initial encounter
CPT/HCPCS: 36415; 80053; 85025; 96374; 96375; 99284; J1200; J1885; J2765; J3490; J7030; 99283

== ENCOUNTER → 2021-04-24 | Day surgery (SDC) | payer OTHER ==
[~2021-04-24] MED LIST changes: +Acetaminophen/HYDROcodone 325-5 MG Tab PO PRN; +Albuterol 0.083% 2.5 MG/3 ML Neb Soln NEB PRN; +Bupivacaine 0.25% 10 ML SDV ONE; +Dexamethasone 4 MG/ML 5 ML MDV ONE; +HYDROmorphone 0.5 MG/0.5 ML Syringe IVPUSH PRN; +Ketorolac 30 MG/ML SDV ONE; +Lactated Ringers 1,000 ML ONE; +Lidocaine 1% 4 ML ONE; +Midazolam 1 MG/ML 2 ML SDV ONE; +Ondansetron 4 MG/2 ML SDV IVPUSH PRN; +Ondansetron 4 MG/2 ML SDV ONE; +Propofol 200 MG/20 ML SDV ONE; +Rocuronium 50 MG/5 ML Vial ONE; +Scopolamine 1.5 MG Transdermal Patch TRDERM PRN; +ceFAZolin 1 GM Vial ONE; +diphenhydrAMINE 50 MG/ML SDV IVPUSH PRN; +fentaNYL 100 MCG/2 ML SDV IVPUSH PRN; +fentaNYL 100 MCG/2 ML SDV ONE
--- NOTE | 2021-04-24 09:47 | PCM.PREANE ---
Preanesthetic Assessment - Procedure Proposed Procedure: left cubital tunnel release - Anesthesia/Transfusion/Family Hx Anesthesia History: Prior Anesthesia Without Reaction Family History of Anesthesia Reaction: No Transfusion History: No Prior Transfusion(s) - Review of Systems General: No Symptoms Pulmonary: No Symptoms Cardiovascular: Dyspnea on Exertion Gastrointestinal: No Symptoms Neurological: Numbness (two fingers left hand and start of nuropathy in feet) Other: Reports: Diabetes (gluco check this am 170 ) - Physical Assessment NPO Status Date: 04/23/21 NPO Status Time: 00:00 Vital Signs: Last Vital Signs Temp Pulse Resp BP Pulse Ox 95 04/24/21 08:47 Height: 1.73 m Weight: 108.5 kg ASA Class: 3 Mental Status: Alert & Oriented x3 Airway Class: Mallampati = 1 Dentition: Reports: Normal Dentition Thyro-Mental Finger Breadths: 3 Mouth Opening Finger Breadths: 3 ROM/Head Extension: Full Lungs: Clear to Auscultation, Normal Respiratory Effort Cardiovascular: Regular Rate, Regular Rhythm - Lab Values: Laboratory Last Values POC Glucose 170 mg/dL (70-99) H 04/24/21 08:51 - Imaging/EKG Impressions: EKG NSR rate 77 Chest X-ray neg. - Allergies Allergies/Adverse Reactions: Allergies Allergy/AdvReac Type Severity Reaction Status Date / Time adhesive Allergy Intermediate Rash Verified 04/23/21 13:56 haloperidol [From Haldol] Allergy Mild Itching Verified 04/23/21 13:56 adalimumab [From Humira] Allergy Unknown Other Verified 04/23/21 13:56 infliximab [From Remicade] Allergy Unknown Other Verified 04/23/21 13:56 prochlorperazine edisylate Allergy Unknown Other Verified 04/23/21 13:56 [From Compazine] prochlorperazine maleate Allergy Unknown Other Verified 04/23/21 13:56 [From Compazine] benzocaine Allergy Cannot Verified 04/23/21 13:56 Remember rituximab [From Rituxan] Allergy Cannot Verified 04/23/21 13:56 Remember - Blood Blood Available: No Product(s) Available: None - Anesthesia Plan Pre-Op Medication Ordered: None - Acknowledgements Anesthesia Type Planned: General Anesthesia Pt an Appropriate Candidate for the Planned Anesthesia: Yes Alternatives and Risks of Anesthesia Discussed w Pt/Guardian: Yes Pt/Guardian Understands and Agrees with Anesthesia Plan: Yes PreAnesthesia Questionnaire HEENT History: Reports: Allergic Rhinitis, Impaired Vision, Sinusitis, Other (See Below) Other HEENT History: throat fullness Cardiovascular History: Reports: High Cholesterol, Other (See Below) Other Cardiovascular History: palpitations Respiratory History: Reports: Other (See Below) Other Respiratory History: cough Gastrointestinal History: Reports: Diverticulosis, GERD, Irritable Bowel Syndrome, Other (See Below) Other Gastrointestinal History: abdominal pain, nausea Genitourinary History: Reports: Urinary Incontinence, Other (See Below) Other Genitourinary History: suprapubic pain 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 Hematologic History: Reports: None Immunologic History: Reports: None Oncologic (Cancer) History: Reports: None Dermatologic History: Reports: Other (See Below) Other Dermatologic History: dermatitis, groin abcess - Infectious Disease History Infectious Disease History: Reports: None - Past Surgical History Head Surgeries/Procedures: Reports: None HEENT Surgical History: Reports: Eye Surgery, Naso-Sinus Surgery, Oral Surgery, Tonsillectomy, Other (See Below) Cardiovascular Surgical History: Reports: None Respiratory Surgical History: Reports: None GI Surgical History: Reports: Cholecystectomy Female Surgical History: Reports: Hysterectomy Male Surgical History: Reports: None Endocrine Surgical History: Reports: None Neurological Surgical History: Reports: None Musculoskeletal Surgical History: Reports: Carpal Tunnel, ORIF Oncologic Surgical History: Reports: None Dermatological Surgical History: Reports: None - SUBSTANCE USE Tobacco Use Status *Q: Current Every Day Tobacco User Tobacco Use Within Last Twelve Months: Cigarettes Second Hand Smoke Exposure: Yes Days Per Week of Alcohol Use: 1 Number of Drinks Per Day: 0 Total Drinks Per Week: 0 Recreational Drug Use History: No - HOME MEDS Home Medications: Home Meds metFORMIN [Glucophage XR] 500 mg PO ACDINNER 12/17/17 [History] Pantoprazole [ProTONIX] 40 mg PO BEDTIME 06/13/18 [History] Pravastatin [Pravachol] 20 mg PO DAILY 03/15/19 [History] Desmopressin [Desmopressin 0.1% Nasal [place]] 4 spray MELVIN DAILY 04/16/19 [History] Cyanocobalamin (Vitamin B-12) [Vitamin B-12] 1,000 mcg PO DAILY 02/26/20 [History] calcium polycarbophiL [Fiber Tabs] 625 mg PO DAILY 02/26/20 [History] traZODone HCl [Trazodone HCl] 50 - 100 mg PO BEDTIME PRN 02/26/20 [History] DULoxetine [Cymbalta] 60 mg PO DAILY 04/23/21 [History] Hydrocodone/Acetaminophen [HYDROcodone-Acetaminophen 5-325 MG] 1 - 2 each PO Q6H PRN #30 tablet 04/23/21 [Rx] SitaGLIPtin [Januvia] 100 mg PO DAILY 04/23/21 [History] sulfaSALAzine 500 mg PO BID 04/23/21 [History] - CURRENT (IN HOUSE) MEDS Current Meds: Current Medications Albuterol (Albuterol 0.083% 2.5 Mg/3 Ml Neb Soln) 2.5 mg NEB Q2H PRN PRN Reason: adventisous lung sounds Stop: 04/24/21 18:00 Last Admin: 04/24/21 08:59 Dose: 2.5 mg Documented by: Lactated Ringer's (Ringers, Lactated) 1,000 mls @ 125 mls/hr IV ASDIRECTED NATALIO Stop: 04/24/21 23:00 Lidocaine/Sodium Bicarbonate (Lidocaine 1%/Sod Bicarbonate In Ns 8.4% 1 Ml Syringe) 0.25 ml IDERM ONETIME PRN PRN Reason: Prior to IV Start Stop: 04/24/21 18:00 Scopolamine (Scopolamine 1.5 Mg Transdermal Patch) 1.5 mg TRDERM ONETIME PRN PRN Reason: history of vertigo Stop: 04/24/21 18:00 Sodium Chloride (Sodium Chloride 0.9% 10 Ml Syringe) 10 ml FLUSH ASDIRECTED PRN PRN Reason: Keep Vein Open Stop: 04/24/21 18:00 Discontinued Medications Midazolam HCl (Midazolam 1 Mg/Ml 2 Ml Sdv) Confirm Administered Dose 2 mg .ROUTE .STK-MED ONE Stop: 04/24/21 09:11 Propofol (Propofol 200 Mg/20 Ml Sdv) Confirm Administered Dose 400 mg .ROUTE .STK-MED ONE Stop: 04/24/21 09:11
--- NOTE | 2021-04-24 12:25 | PCM.POSTAN ---
POST ANESTHESIA ASSESSMENT - MENTAL STATUS Mental Status: Alert, Oriented - VITAL SIGNS Vital Signs: Last Vital Signs Temp 36.9 C 04/24/21 08:35 Pulse 85 04/24/21 08:35 Resp 16 04/24/21 08:35 BP 137/87 04/24/21 08:35 Pulse Ox 95 04/24/21 08:47 - RESPIRATORY Respiratory Status: Respiratory Rate WNL, Airway Patent, O2 Saturation Stable, Supplemental Oxygen - CARDIOVASCULAR CV Status: Pulse Rate WNL, Blood Pressure Stable - GASTROINTESTINAL GI Status: No Symptoms - PAIN Pain Score: 4 - POST OP HYDRATION Hydration Status: Adequate & Stable
--- NOTE | 2021-04-24 13:27 | PCM48HPAN ---
Post Anesthesia Note - EVALUATION WITHIN 48HRS OF ANESTHETIC Vital Signs in Normal Range: Yes Patient Participated in Evaluation: Yes Respiratory Function Stable: Yes Airway Patent: Yes Cardiovascular Function Stable: Yes Hydration Status Stable: Yes Pain Control Satisfactory: Yes Nausea and Vomiting Control Satisfactory: Yes Mental Status Recovered: Yes Vital Signs: Last Vital Signs Temp 36.6 C 04/24/21 12:45 Pulse 63 04/24/21 12:45 Resp 11 L 04/24/21 12:45 BP 137/79 04/24/21 12:45 Pulse Ox 100 04/24/21 12:45
[2021-04-24 16:01] VITALS: BP 131/85; PULSE 60
--- NOTE | 2021-05-12 07:18 | PCM.OPNOTE ---
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
--- NOTE | 2021-05-12 07:38 | OR ---
DATE OF OPERATION: 04/24/2021 SURGEON: Julian Jose MD OPERATION PERFORMED: Left cubital tunnel release. PREOPERATIVE DIAGNOSIS: Left ulnar nerve compression neuropathy. POSTOPERATIVE DIAGNOSIS: Left ulnar nerve compression neuropathy. ANESTHESIA: General LMA with local. ANESTHESIA PROVIDER: Luz David. SECURITY COMPLIANCE SPECIALIST: Mary Wong PA-C. ESTIMATED BLOOD LOSS: Less than 5 mL. COMPLICATIONS: None. CONDITION: Stable. DESCRIPTION OF PROCEDURE: The patient was identified in the preoperative holding area. Proper site was marked and identified by the surgeon. The patient was taken back to the operative theater, where after adequate anesthesia, the patient had a nonsterile tourniquet applied to the left upper extremity. Left upper extremity was then sterilely prepped and draped in the usual sterile fashion. OR time-out was performed. The patient received 2 g IV Ancef. Left upper extremity was exsanguinated and tourniquet was insufflated to 200 mmHg. A standard curvilinear incision was made centered near the cubital tunnel. The nerve was then identified up near the triceps fascia. The triceps fascia was released. At this time, the cubital tunnel as well as Montes ligament and Montes fascia and all other areas of compression were released all the way to the flexor forearm fascia making sure to protect the motor branch. The patient's nerve was noted to be freely released all the way proximally to distally. There were no signs of subluxation with range of motion of the elbow. Adequate saline was irrigated through the wound. 2-0 Vicryl was used subcutaneously, and Monocryl was used for closure of the skin. The patient had a sterile soft dressing and a posterior slab splint applied. We did use 0.25% Marcaine to anesthetize the incisional region. The patient was sent to the PACU in stable condition. MMODAL /[id number]
== END | disposition home or self-care (01) ==
LOC: JD.SDS 08:20
PROVIDERS: ATTEND Orthopaedic Surgery
DX: G56.12 Other lesions of median nerve, left upper limb (principal); G56.22 Lesion of ulnar nerve, left upper limb; K21.9 Gastro-esophageal reflux disease without esophagitis; E78.5 Hyperlipidemia, unspecified; G43.909 Migraine, unspecified, not intractable, without status migrainosus; E11.40 Type 2 diabetes mellitus with diabetic neuropathy, unspecified; F17.210 Nicotine dependence, cigarettes, uncomplicated; E55.9 Vitamin D deficiency, unspecified; Z88.8 Allergy status to other drugs, medicaments and biological substances; Z88.5 Allergy status to narcotic agent; Z79.899 Other long term (current) drug therapy; Z79.4 Long term (current) use of insulin; Z98.890 Other specified postprocedural states
CPT/HCPCS: 64718; 82947; 94640; A9270; J0690; J1100; J1885; J2250; J2405; J2704; J2710; J3010; J3490; J7120; 01710

== ENCOUNTER 2022-01-13 21:27 | Emergency (ER) | payer OTHER ==
[2022-01-13 22:15] VITALS: BP 164/84; PULSE 95
== END 2022-01-13 22:51 | disposition home or self-care (01) ==
LOC: JD.ED 21:27
DX: L02.416 Cutaneous abscess of left lower limb (principal); E78.00 Pure hypercholesterolemia, unspecified; K21.9 Gastro-esophageal reflux disease without esophagitis; E11.9 Type 2 diabetes mellitus without complications; E66.9 Obesity, unspecified; Z68.36 Body mass index [BMI] 36.0-36.9, adult; Z79.84 Long term (current) use of oral hypoglycemic drugs; Z79.899 Other long term (current) drug therapy; Z88.8 Allergy status to other drugs, medicaments and biological substances; Z88.9 Allergy status to unspecified drugs, medicaments and biological substances; Z88.0 Allergy status to penicillin
CPT/HCPCS: 99282

== ENCOUNTER 2022-06-23 19:28 | Emergency (ER) | payer OTHER ==
[2022-06-23] MEDS ORDERED: Ondansetron 4 MG/2 ML SDV IVPUSH ONE (20:53)
[2022-06-23] MEDS ORDERED: Sodium Chloride 0.9% 10 ML Syringe FLUSH PRN (20:53)
[2022-06-23] MEDS ORDERED: Sodium Chloride 0.9% 1,000 ML IV SCH (21:00)
[2022-06-23] MEDS ORDERED: HYDROmorphone 1 MG/ML Syringe IVPUSH STA (21:02)
[2022-06-23 21:23] LABS: ESTIMATED GFR 72 mL/min (>60)
[2022-06-23] MEDS ORDERED: Iopamidol 612 MG/ML 100 ML Bottle IVPUSH ONE (21:40)
[2022-06-23] MEDS ORDERED: Acetaminophen/oxyCODONE 325-5 MG Tab PO ONE (22:28)
[2022-06-23 23:08] VITALS: BP 129/85; PULSE 95
== END 2022-06-23 22:50 | disposition home or self-care (01) ==
LOC: JD.ED 19:28
DX: K52.9 Noninfective gastroenteritis and colitis, unspecified (principal); E11.9 Type 2 diabetes mellitus without complications; E78.00 Pure hypercholesterolemia, unspecified; F17.210 Nicotine dependence, cigarettes, uncomplicated; E66.9 Obesity, unspecified; Z68.31 Body mass index [BMI] 31.0-31.9, adult; Z91.048 Other nonmedicinal substance allergy status; Z88.8 Allergy status to other drugs, medicaments and biological substances; Z79.899 Other long term (current) drug therapy; Z79.84 Long term (current) use of oral hypoglycemic drugs; Z90.49 Acquired absence of other specified parts of digestive tract
CPT/HCPCS: 36415; 74177; 80053; 83690; 85025; 86140; 96361; 96374; 96375; 99284; A9270; J1170; J2405; J7030; Q9967

== ENCOUNTER 2023-08-06 07:07 | Emergency (ER) | payer OTHER ==
[2023-08-06] MEDS ORDERED: Sodium Chloride 0.9% 10 ML Syringe FLUSH PRN (07:52)
[2023-08-06] MEDS ORDERED: Sodium Chloride 0.9% 1,000 ML IV ONE (07:52)
[2023-08-06] MEDS ORDERED: Ondansetron 4 MG/2 ML SDV IVPUSH ONE (07:55)
[2023-08-06 08:08] LABS: BASOPHILS PERCENT AUTO 0.3 % (0.0-1.0); EOSINOPHILS ABSOLUTE AUTO 0.1 K/mm3 (0.0-0.4); EOSINOPHILS PERCENT AUTO 0.7 % (0.0-6.0); HEMOGLOBIN 15.7 gm/dl (12.0-16.0); IMMATURE GRAN ABSOLUTE AUTO 0.04 K/mm3 (0.00-0.05); IMMATURE GRAN PERCENT AUTO 0.4 % (0.0-0.4); LYMPHOCYTES ABSOLUTE AUTO 0.3 K/mm3 (1.0-4.8); LYMPHOCYTES PERCENT AUTO 2.9 % (24.0-44.0); MEAN CORPUSCULAR HEMOGLOBIN 29.3 pg (28.0-32.0); MEAN CORPUSCULAR HGB CONC 32.7 g/dl (32.0-36.0); MEAN CORPUSCULAR VOLUME 89.7 fl (83.0-99.0); MEAN PLATELET VOLUME 10.3 fl (9.4-12.3); MONOCYTES ABSOLUTE AUTO 0.4 K/mm3 (0.0-0.8); MONOCYTES PERCENT AUTO 3.9 % (0.0-8.0); NEUTROPHILS ABSOLUTE AUTO 9.2 K/mm3 (1.8-7.7); NEUTROPHILS PERCENT AUTO 91.8 % (41.0-71.0); PLATELET COUNT,PLT 154 K/mm3 (150-400); RED BLOOD CELL COUNT 5.35 M/mm3 (4.10-5.30); WHITE BLOOD CELL COUNT,WBC 10.01 K/mm3 (3.9-11.3)
[2023-08-06 08:23] LABS: A/G RATIO 0.9 (1-2); ALBUMIN 3.5 g/dl (3.4-5.0); BILIRUBIN TOTAL 0.4 mg/dL (0.2-1.0); BUN/CREATININE RATIO 18.2 (14-18); CALCIUM 8.9 mg/dL (8.5-10.1); CREATININE 1.1 mg/dL (0.55-1.02); EST CRCL DRUG DOSING (CG) 65.84 mL/min; MAGNESIUM 1.7 mg/dL (1.8-2.4); PROTEIN TOTAL,TP 7.3 g/dl (6.4-8.2)
[2023-08-06 08:45] LABS: CORONAVIRUS COVID-19 NAA NEGATIVE (NEGATIVE); INFLUENZA A NAA NEGATIVE (NEGATIVE); RESPIRATORY SYNCYTIAL VIR NAA NEGATIVE (NEGATIVE)
[2023-08-06 08:46] LABS: SLIDE REVIEW ABNORMAL SMEAR
[2023-08-06 09:50] LABS: APPEARANCE,URINE CLEAR (Clear); BILIRUBIN,URINE 1+ (Negative); COLOR,URINE YELLOW (Yellow); GLUCOSE,URINE NEGATIVE (Negative); KETONES,URINE 1+ (Negative); LEUKOCYTE ESTERASE,URINE NEGATIVE (Negative); NITRITE,URINE NEGATIVE (Negative); OCCULT BLOOD,URINE NEGATIVE (Negative); PROTEIN,URINE 1+ (Negative); UROBILINOGEN,URINE 0.2 (0.2-1.0)
[2023-08-06] MEDS ORDERED: HYDROmorphone 1 MG/ML Syringe IVPUSH ONE (09:53)
[2023-08-06] MEDS ORDERED: Naloxone 0.4 MG/ML SDV IVPUSH PRN (09:53)
[2023-08-06 10:27] LABS: BACTERIA,URINE MODERATE /hpf (FEW); MUCUS,URINE MANY /hpf (FEW); RBC,URINE 0-5 /hpf (0-5); SQUAMOUS EPITHELIAL CELLS,UR 0-5 /hpf (0-5); WBC,URINE 0-5 /hpf (0-5)
[2023-08-06 10:41] VITALS: BP 123/90; PULSE 106
== END 2023-08-06 10:32 | disposition home or self-care (01) ==
LOC: JD.ED 07:07
DX: A08.4 Viral intestinal infection, unspecified (principal); M54.50 Low back pain, unspecified; K21.9 Gastro-esophageal reflux disease without esophagitis; E78.00 Pure hypercholesterolemia, unspecified; F17.210 Nicotine dependence, cigarettes, uncomplicated; E11.9 Type 2 diabetes mellitus without complications; E66.9 Obesity, unspecified; Z68.28 Body mass index [BMI] 28.0-28.9, adult; Z88.8 Allergy status to other drugs, medicaments and biological substances; Z91.048 Other nonmedicinal substance allergy status; Z90.49 Acquired absence of other specified parts of digestive tract; Z90.710 Acquired absence of both cervix and uterus; Z20.822 Contact with and (suspected) exposure to COVID-19; Z79.84 Long term (current) use of oral hypoglycemic drugs; Z79.899 Other long term (current) drug therapy
CPT/HCPCS: 0241U; 36415; 80053; 81001; 83735; 85025; 96361; 96374; 96375; 99284; 99284-25; J1170; J2405; J3490; J7030

== ENCOUNTER 2024-03-03 20:59 | Emergency (ER) | payer OTHER ==
[2024-03-03] MEDS: Ketorolac 60 MG/2 ML SDV IM ONE (22:56)
[2024-03-03] MEDS: HYDROmorphone 1 MG/ML Syringe IM ONE (22:56)
[2024-03-03 23:37] VITALS: BP 139/51; PULSE 76
== END 2024-03-03 23:36 | disposition home or self-care (01) ==
LOC: JD.ED 20:59
DX: M79.651 Pain in right thigh (principal); M79.652 Pain in left thigh; K59.03 Drug induced constipation; T40.605A Adverse effect of unspecified narcotics, initial encounter; E78.00 Pure hypercholesterolemia, unspecified; K21.9 Gastro-esophageal reflux disease without esophagitis; E66.9 Obesity, unspecified; E11.9 Type 2 diabetes mellitus without complications; Z79.84 Long term (current) use of oral hypoglycemic drugs; Z79.899 Other long term (current) drug therapy; Z88.8 Allergy status to other drugs, medicaments and biological substances; Z91.048 Other nonmedicinal substance allergy status; Z68.32 Body mass index [BMI] 32.0-32.9, adult
CPT/HCPCS: 96372; 99283; J1170; J1885; 99284

== ENCOUNTER 2024-05-12 16:45 | Emergency (ER) | payer OTHER ==
[2024-05-12 19:44] VITALS: BP 149/86; PULSE 78
== END 2024-05-12 19:35 | disposition home or self-care (01) ==
LOC: JD.ED 16:45
DX: S61.200A Unspecified open wound of right index finger without damage to nail, initial encounter (principal); E78.00 Pure hypercholesterolemia, unspecified; K21.9 Gastro-esophageal reflux disease without esophagitis; E11.40 Type 2 diabetes mellitus with diabetic neuropathy, unspecified; E66.9 Obesity, unspecified; Z90.49 Acquired absence of other specified parts of digestive tract; Z90.710 Acquired absence of both cervix and uterus; Z87.891 Personal history of nicotine dependence; Z79.84 Long term (current) use of oral hypoglycemic drugs; Z79.899 Other long term (current) drug therapy; Z91.048 Other nonmedicinal substance allergy status; Z88.8 Allergy status to other drugs, medicaments and biological substances; Z68.38 Body mass index [BMI] 38.0-38.9, adult; W26.8XXA Contact with other sharp object(s), not elsewhere classified, initial encounter
CPT/HCPCS: 99282; 99283

== ENCOUNTER 2024-07-13 11:12 | Emergency (ER) | payer OTHER ==
[2024-07-13 11:27] VITALS: BP 144/83; PULSE 84
[2024-07-13] MEDS: Ibuprofen 800 MG Tab PO ONE (12:07)
== END 2024-07-13 12:21 | disposition home or self-care (01) ==
LOC: JD.ED 11:12
DX: S69.91XA Unspecified injury of right wrist, hand and finger(s), initial encounter (principal); K21.9 Gastro-esophageal reflux disease without esophagitis; E11.40 Type 2 diabetes mellitus with diabetic neuropathy, unspecified; E66.9 Obesity, unspecified; Z68.32 Body mass index [BMI] 32.0-32.9, adult; Z90.49 Acquired absence of other specified parts of digestive tract; Z90.710 Acquired absence of both cervix and uterus; Z87.891 Personal history of nicotine dependence; Z79.84 Long term (current) use of oral hypoglycemic drugs; Z79.899 Other long term (current) drug therapy; Z91.048 Other nonmedicinal substance allergy status; Z88.8 Allergy status to other drugs, medicaments and biological substances; Z88.9 Allergy status to unspecified drugs, medicaments and biological substances; Z88.4 Allergy status to anesthetic agent; W23.1XXA Caught, crushed, jammed, or pinched between stationary objects, initial encounter
CPT/HCPCS: 73140-26-F9; 73140-F9; 99282; 99283; A9270-GY